=== PATIENT | female | born 1945 | race Caucasian/White ===

== ENCOUNTER 2019-07-24 05:33 | Inpatient (IN) | payer MEDICARE, BC, SELFPAY ==
[2019-07-13 13:35] VITALS: BP 155/67; PULSE 75; RESP 16; TEMP 36.5; O2SAT 94; BMI 27.6
--- NOTE | 2019-07-13 13:40 | SDCEKG_ITS ---
Test Reason : Blood Pressure : / mmHG Vent. Rate : 067 BPM Atrial Rate : 067 BPM P-R Int : 178 ms QRS Dur : 078 ms QT Int : 418 ms P-R-T Axes : 061 003 062 degrees QTc Int : 441 ms Normal sinus rhythm Inferior infarct , age undetermined Abnormal ECG Confirmed by SCOTT LOYA, RADHA ([id number]), editor trade journal FRANCIE PATRICK ([id number]) on 07/17/2019 3:18:25 PM Referred By: Nirav Vasquez Confirmed By:PANCHO CHAVEZ MD
--- NOTE | 2019-07-13 14:20 | RAD_ITS ---
STUDY: X-RAY CHEST REASON FOR EXAM: Female, 74 years old. Longtime smoker. TECHNIQUE: PA and lateral views of the chest. COMPARISON: None. FINDINGS: Hyperinflation. Scattered calcified old granulomatous disease. No acute abnormality is seen. There is no demonstrated pleural abnormality. Normal size heart. Normal mediastinum and merced. Normal visualized pulmonary arteries. Normal visualized aortic arch and descending thoracic aorta. There are degenerative changes of the visualized thoracic spine. Prior fusion in the lower cervical spine. Normal visualized ribs, clavicles, and shoulders. There is no demonstrated abnormality of the visualized soft tissue structures of the upper abdomen. RAD/Chest PA and Lateral IMPRESSION: Hyperinflation. No acute abnormality is seen. Electronically Signed: Jeramie Gaspar, at 15:08 EDT , Service support ,
[2019-07-13 14:21] LABS: Absolute Lymphocyte Count 3.07 X10^3/uL (0.83-4.51); Absolute Neutrophil Count 3.9 X10^3/uL (2.0-7.7); Basophil# 0.06 X10^3/uL; Basophil% 0.8 % (0-1); Eosinophil# 0.12 X10^3/uL; Eosinophils% 1.5 % (0-5); Hematocrit 41.9 % (37-47); Hemoglobin 13.5 g/dL (12.0-15.0); Lymphocyte # 3.07 X10^3/ul (4.0); Lymphocyte % 39.1 % (19-41); Mean Corp Hgb Conc 32.2 g/dL (32-36); Mean Corpuscular Hgb 28.9 pg (27.0-32.0); Mean Corpuscular Volume 89.7 fL (81-99); Mean Platelet Vol. 10.3 fl (6.2-12.0); Monocyte# 0.73 X10^3/uL; Monocyte% 9.3 % (0-10); NRBC Flagged by Analyzer 0 % (0-5); Neutrophil # 3.86 X10^3/uL (2.7-7.7); Platelet Count 296 K/mm3 (150-450); RBC Distribution Width CV 13.5 % (11.6-14.6); RBC Distribution Width SD 44.4 fl (35.1-43.9); Red Blood Count 4.67 M/mm3 (4.2-5.4); White Blood Count 7.9 K/mm3 (4.4-11.0)
[2019-07-13 15:21] LABS: Anion Gap 5 (5-15); BUN 24 mg/dL (7-18); BUN/Creat Ratio 30.8 RATIO (10-20); Chloride 111 mmol/L (98-107); Creatinine, Serum 0.78 mg/dL (0.55-1.02); EST Glomerular Filtration Rate 77 mL/min (>60); Est Glom Filt Rate - Afr Amer 94 mL/min (>60); Estimated Creatinine Clearance 42.07 ml/min; Glucose 103 mg/dL (74-106); Potassium 4.4 mmol/L (3.5-5.1); Sodium Level 144 mmol/L (136-145)
[2019-07-24] VITALS (15 sets, daily range): BP systolic 93–139; BP diastolic 36–83; PULSE 57–96; RESP 16–20; TEMP 36–36.8; O2SAT 95–100; BMI 27.6; BMI 27.5
[2019-07-24] MEDS: Lactated Ringers 1,000 ML 100 ML IV ×2 (06:28→10:16)
[2019-07-24] MEDS: Acetaminophen 500 MG Tablet 1000 MG PO ×3 (06:30→21:23)
[2019-07-24] MEDS: Gabapentin 600 MG Tablet PO (06:30)
[2019-07-24] MEDS: Magnesium Sulfate 4gm/100mL 4 GM/100 ML IV.SOLN. IV (06:30)
[2019-07-24 07:01] LABS: Bedside Glucose 155 mg/dL (70-110)
--- NOTE | 2019-07-24 07:15 | HIP_PTH ---
PATIENT: ALISSON MCFADDEN LOC: MS3 U#:[id number] AGE/SX: 74/F ROOM: [facility] [place] RE07/24/[address]: Dr. Nirav Vasquez DO : 1945 BED: 1 DIS: 07/25/2019 SPEC #: [id number] RECD: 07/24/19 11:29 STATUS: HEBERT REJohan #: [id number] REYNA: 07/24/19 07:[address]: Nirav Vasquez DEPT: SURGICAL PATHOLOGY RECD BY: Yobani Ernst ENTERED: 07/24/19 12:18 SP TYPE: TOTAL HIP OTHR DR: Dr. Shaw Bejarano MD Tissues: Hip, NOS Procedures: Decalcification bone/plaque Surgery Specimen Level IV HEADER OPERATION: Total hip replacement PRE-OP DIAGNOSIS: Unilateral primary osteoarthritis, right hip TISSUE SUBMITTED: Femur head MICROSCOPIC DIAGNOSIS Bone and soft tissue of right hip, total hip resection: Consistent with severe degenerative joint disease. AM:dwain 07/28/19 MICROSCOPIC DESCRIPTION Slides are reviewed. GROSS DESCRIPTION Received is one container labeled with the patient's name and designated right femur head. The specimen consists of a femoral head measuring 6.5 x 4.5 x 4.5 cm. The articular surface displays prominent osteophyte formation, eburnation and bone erosion. Also present in the specimen container are multiple irregular fragments of bone reamings and pink-yellow soft tissue measuring in aggregate 9 x 8 x 1 cm. Live Truck Technician sections are submitted in two cassettes as follows: 1 - soft tissue, 2 - bone after decalcification. / AM:dwain 07/24/19 TC:5 CPT: 09423, 88992
[2019-07-24] MEDS: Cefazolin 2 GM in 0.9% Normal Saline 100 ML IV (07:21)
--- NOTE | 2019-07-24 08:29 | PCM.OPRPT ---
Report of Operation Date of Procedure: 07/24/19 Pre-Operative Diagnosis: OA right hip Post-Operative Diagnosis: same Surgery/Procedure Performed:: Right THR Description of Surgical Findings:: Primary Surgeon/Physician: Nirav Vasquez senior medical technologist: Nicholas Wallace PA-C senior medical technologist: Pre-Operative Diagnosis: OA right hip Post-Operative Diagnosis: same Surgery/Procedure Performed: Right THR Estimated Blood Loss: 100 cc Specimen's Removed: bone Type of Anesthesia: 2 ASA Class: ASA3 Severe Disease Implants: [[place] size 50 mm Trident Tritanium cup, MDM liner, Accolade 2 size 3 femoral, +3 neck length ] Surgical Indications: Patient has severe end-stage osteoarthritic changes in the [right ] hip. They have failed conservative measures including activity modification, anti-inflammatories, use of assistive devices. This to the point where the pain affects their ability to enjoy life and complete activities of daily living without discomfort. Patient has elected to undergo the above procedure Procedure Description: The patient was greeted in the preoperative area the [right] hip was marked with surgical marker preoperative antibiotics administered. The patient was then taken to or suite in stable condition. Preoperative tranexamic acid was also utilized. Once the patient was placed in the supine position on the operating room table and once adequate anesthesia was obtained they were then placed in the lateral decubitus position with the surgical hip facing the field. All bony prominences were well-padded. A commercial hip position was utilized. The appropriate extremity was then prepped and draped in usual sterile fashion. Ioban was placed on the skin. Surgical timeout was performed and surgery was commenced. A standard posterior approach to the hip was then performed. Incision was planned and carried out with a #10 blade scalpel. Dissection was then carried length of the incision to the IT band which was split proximally and distally. A Charnley retractor was then placed for soft tissue retraction exposing the piriformis. A standard posterior capsulotomy was performed. Severe eburnation of bone was noted and periarticular osteophytes were identified consistent with severe end-stage osteoarthritis. A femoral neck osteotomy guide was used to justina the proximal femur. A femoral osteotomy was then created approximately 1 fingerbreadth above the lesser trochanter. This was measured and placed on the back table. Once this was complete acetabular retractors were placed anteriorly and posteriorly. Labrum was then removed from the acetabulum exposing the entire cup of the acetabulum. Sequential reaming was then commenced and the acetabulum was medialized and sequentially widened in order to accommodate appropriate size cup. The acetabular cup was then impacted into position to the appropriate depth referencing approximately 30? anteversion and 45? of inclination. Excellent purchase was obtained. [2] appropriate sized cancellous screws were placed in the cup. An appropriate size MDM liner was then placed. Attention was then turned to the femoral preparation. The hip was placed in the 90/90 position and a lateralizing box osteotome was utilized. Femoral starting awl was used followed by sequential broaching to the appropriate size. Excellent purchase was obtained with the stem no stem subsidence and excellent rotational stability was confirmed. A calcar reamer was then used in the trial head neck was placed on the broach. The hip was then located and taken through full range of motion flexion internal and external rotation as well as extension. Excellent stability was noted no impingement was identified of the components and leg lengths appear to be appropriate. The hip was at this point dislocated and the trial femoral components were removed. The final femoral stem was then implanted and impacted to the appropriate depth. Again excellent purchase was obtained no stem subsidence or rotational instability was noted. The hip was once again trialed and confirmation of leg length and stability was performed. Soft tissue tension also appeared to be appropriate. At this point the hip was redislocated and the trunnion was cleaned and dried meticulously in the appropriate size MDM femoral head was placed on the clean dry trunnion using a 12/14 Wilson taper. The hip was once again relocated and again taken through full range of motion. I did inject a cocktail of postoperative pain medication in the deep and superficial tissues. Copious irrigation was performed. Anatomic closure of the piriformis tendon was performed through drill holes in the greater trochanter. A #1 Vicryl 0 Vicryl was utilized in subcutaneous tissue and surgical shyla were placed in the skin. A well-padded nonadherent dressing was applied. Patient was taken to PACU in stable condition. No complications were identified. Will follow standard postop protocol for total hip arthroplasty. My asset protection assistant played a vital role in the procedure beginning with positioning, holding retraction of soft tissues, positioning the leg to optimize visualization during the procedure and assisting with wound closure. senior medical technologist: Yaron Wallace Type of Anesthesia:: Spinal Anesthesiologist: Weeman,Farhat Specimen's removed: bone - Admit VTE Documentation VTE Present on Admission: No VTE Mechan Device Prophylaxis: SCD's, Knee High JENNA Hose VTE Pharm Prophylaxis ordered?: Yes
--- NOTE | 2019-07-24 09:15 | RAD_ITS ---
STUDY: X-RAY - PELVIS AND RIGHT HIP REASON FOR EXAM: Female, 74 years old. Right hip replacement. TECHNIQUE: 2 views of the pelvis and hip. COMPARISON: None. FINDINGS: The patient is status post right total hip replacement. Discoid alignment. Postoperative soft tissue changes. Marked degree of osteoarthritis with spurring involving the left hip joint. RAD/Hip Min 2 Views (Portable) IMPRESSION: Status post right total hip replacement. There is good alignment. Postoperative soft tissue changes. Marked degree of osteoarthritis of the left hip joint. Electronically Signed: Jeramie Gaspar, at 11:01 EDT , Service support ,
[2019-07-24] MEDS: Lactated Ringers 1,000 ML 999 ML IV (09:22)
[2019-07-24] MEDS: Lactated Ringers 1,000 ML 125 ML IV (11:00)
[2019-07-24] MEDS: Multivitamins,Therapeutic Tablet 1 TABLET PO (14:07)
[2019-07-24] MEDS: Cefazolin 1 GM/50 ML BAG IV ×2 (15:16→23:35)
[2019-07-24] MEDS: Aspirin 325 MG Tablet PO (15:17)
--- NOTE | 2019-07-24 15:41 | CHAPLAIN ---
three attempts made to visit this patient but each time someone in therapy was working with her
[2019-07-24] MEDS: oxyCODONE 5 MG Tablet PO (17:26)
[2019-07-24] MEDS: Lisinopril 10 MG Tablet PO (21:23)
[2019-07-25 02:18] VITALS: BP 148/71; PULSE 75; RESP 20; TEMP 36.8; O2SAT 96
[2019-07-25] MEDS: oxyCODONE 5 MG Tablet PO ×3 (02:28→12:38)
[2019-07-25] MEDS: Acetaminophen 500 MG Tablet 1000 MG PO ×2 (05:41→12:39)
[2019-07-25 05:45] LABS: Hematocrit 33.1 % (37-47); Hemoglobin 10.7 g/dL (12.0-15.0); Mean Corp Hgb Conc 32.3 g/dL (32-36); Mean Corpuscular Hgb 28.8 pg (27.0-32.0); Mean Corpuscular Volume 89.2 fL (81-99); Mean Platelet Vol. 9.7 fl (6.2-12.0); Platelet Count 233 K/mm3 (150-450); RBC Distribution Width CV 13.8 % (11.6-14.6); RBC Distribution Width SD 45.2 fl (35.1-43.9); Red Blood Count 3.71 M/mm3 (4.2-5.4); White Blood Count 15.8 K/mm3 (4.4-11.0)
[2019-07-25 06:03] LABS: Anion Gap 6 (5-15); BUN 16 mg/dL (7-18); BUN/Creat Ratio 22.7 RATIO (10-20); Calcium,Total 8.7 mg/dL (8.5-10.1); Chloride 111 mmol/L (98-107); EST Glomerular Filtration Rate 87 mL/min (>60); Est Glom Filt Rate - Afr Amer 105 mL/min (>60); Estimated Creatinine Clearance 42.07 ml/min; Glucose 121 mg/dL (74-106); Potassium 4.4 mmol/L (3.5-5.1); Sodium Level 145 mmol/L (136-145)
--- NOTE | 2019-07-25 07:45 | PCM.PN.ORT ---
Subjective: Patient sitting up in bed, states pain is well-managed this morning. Patient denies chest pain, shortness of breath, calf pain, nausea vomiting. Patient states she is ready for discharge home today. Has no other complaints at this time Objective: Patient's dressing is clean dry intact. Negative signs and symptoms of DVT. Vital signs and labs were all reviewed as noted in this document. Patient is afebrile. Patient has no respiratory distress, speaking full sentences. Patient has good motion of the bilateral knees ankles and feet. Patient has reluctance of motion of the right hip secondary to pain. Patient leg lengths are equal. - Physical Exam General: Alert, Oriented x3, Cooperative HEENT: PERRLA Oral: Moist Mucosa Neurological: Cranial nerves II-XII grossly intact Psych/Mental Status: Normal Affect, Alert and oriented to time, place, person, mood and affect Vital Signs Temp Pulse Resp BP Pulse Ox 98.2 F 75 20 H 148/71 H 96 07/25/19 02:18 07/25/19 02:18 07/25/19 02:18 07/25/19 02:18 07/25/19 02:18 Oxygen Flow Rate (L/min) 6 Oxygen Delivery Method Room Air Weight: 70.5 kg Body Mass Index (BMI) 27.5 Intake and Output for Last 24 Hours 07/23/19 07/24/19 07/25/19 23:59 23:59 23:59 Intake Total 2892.5 / 2892.5 Balance 2892.5 / 2892.5 Laboratory Tests Past 24 Hrs 07/25/19 07/25/19 05:25 05:25 WBC 15.8 H RBC 3.71 L Hgb 10.7 L Hct 33.1 L MCV 89.2 MCH 28.8 MCHC 32.3 RDW Std Deviation 45.2 H RDW Coeff of Juliana 13.8 Plt Count 233 MPV 9.7 Sodium 145 Potassium 4.4 Chloride 111 H Carbon Dioxide 28.0 Anion Gap 6 BUN 16 Creatinine 0.70 Estim Creat Clear Calc 42.07 Est GFR (MDRD) Af Amer 105 Est GFR (MDRD) Non-Af 87 BUN/Creatinine Ratio 22.7 H Glucose 121 H Calcium 8.7 Medical Necessity - Tobacco Use Smoking Status: Light Smoker (<10/day) Tobacco Use: Non-smoker, Cigarettes Assessment/Plan Status post right total hip arthroplasty Plan 1. DC oxycodone, will start patient on tramadol 1-2 q. 6 as needed for pain. Will continue Tylenol Extra Strength 2 every 8 hours 2. Continue physical therapy today weight-bear as tolerated with walker. 3. Aspirin 325 mg 1 p.o. every 12 hours x30 days for postop DVT prophylaxis 4. Encourage incentive spirometry 5. Discharge home today will continue outpatient therapy 6. Follow-up as scheduled, see pink sheet
--- NOTE | 2019-07-25 07:54 | PCM.DC.THR ---
Discharge Diet: No Restrictions Discharge Activity: May Not Drive, May Shower, Use Walker May shower in (days): 3 - only if incision is dry and without drainage. Do NOT soak/submerge in tub/pool/martinez/stream/hot tub. May resume sexual activity in: No Restrictions Ice area for (Minutes): 20 - every hour while awake Weight Bearing Status: Weight bearing as tolerated Lifting Restrictions: 20 pounds Elevate: Operative Extremity Call your doctor if your incision/area has: Continuous Slow Oozing, Sudden Increased Bleeding, Increased Pain/ Swelling, Increased Redness, Foul Smelling Discharge Call your doctor if you observe: Fever of 101 or Higher, Inability to urinate, Inability to have a bowel movement, Shortness of breath, Fainting spells, Chest pain, Increased palpitations (irregular heartbeat), Calf discomfort, Uncontrolled pain Change Dressing in (Days):: 0 - Change daily and as needed. Cleanse incision/area with: Soap & Water Allergies/Adverse Reactions: Allergies No Known Allergies Allergy (Verified 07/24/19 06:07) Medications to take at Discharge Lisinopril [Prinivil] 10 mg PO QHS 07/13/19 Meloxicam [Mobic] 15 mg PO QHS 07/13/19 Multivitamin [Multiple Vitamins] 1 ea PO DAILY 07/13/19 [place]-3 Fatty Acids/Fish Oil [Fish Oil 1,000 mg Capsule] 1 ea PO DAILY 07/13/19 Acetaminophen [Tylenol] 1,000 mg PO Q8 #90 tab 07/25/19 Aspirin 325 mg PO BIDCM #60 tab 07/25/19 Oxycodone [Oxyir] 5 - 10 mg PO Q6H PRN PRN 7 Days #56 tab 07/25/19 The following prescriptions were given: Aspirin 325 mg PO BIDCM #60 tab Prescription Printed Oxycodone [Oxyir] 5 - 10 mg PO Q6H PRN PRN 7 Days #56 tab PRN Reason: Mod-Severe Pain (4-08/10) Prescription Printed Acetaminophen [Tylenol] 1,000 mg PO Q8 #90 tab Prescription Printed Primary Care Physician: Shaw Bejarano MD [Primary Care Provider] - Test Results: Test results from this visit will be discussed in further detail at your follow-up appointment, if applicable. Please Follow Up With: Yaron Wallace PA-C When: as scheduled, see pink sheet
[2019-07-25] MEDS: Aspirin 325 MG Tablet PO (07:59)
[2019-07-25] MEDS: Multivitamins,Therapeutic Tablet 1 TABLET PO (08:00)
[2019-07-25] MEDS: Senna/Docusate Sodium 1 Tablet 2 TABLET PO (08:00)
[2019-07-25 08:20] VITALS: BP 144/62; PULSE 99; RESP 16; TEMP 36.6; O2SAT 97
--- NOTE | 2019-07-25 10:25 | CASEMGMT ---
RN TALITA Face to Face with patient for initial transition planning/care coordination assessment. RN CM introduced self and role at [facility]. Patient sitting in chair, alert and oriented. Patient willing to participate in assessment and is able to answer all questions appropriately. Care providers, pharmacy, and demographics verified. Patient wishes to discharge home and is setup with [facility] for Outpatient therapy. Patient states she has no further needs or concerns at this time. CM to follow for discharge planning needs that may arise. PCP: Carlee Specialists:[facility] Pharmacy: [facility] Insurance: Shahbaz ALDRIDGE Prescription Benefit: yes Living Will/HPOA: yes, Nicholas Rosales LNOK: , daughter Living Arrangements: Patient lives with in 1 story home with no steps to enter the home. Patient is independent at home prior to surgery. Transportation: DME/HHC: Patient states she has walker, raised toilet, cane, shower chair, wheelchair. Patient to have outpatient therapy at [facility] on Wednesday. Disposition Plan: Patient to discharge home with outpatient therapy, family support, and follow-up plans in place. Lita GREY, RN, CM
[2019-07-25 14:20] VITALS: BP 138/71; PULSE 94; RESP 16; TEMP 36.6; O2SAT 97
== END 2019-07-25 14:25 | disposition home or self-care (01) | DRG 470 ==
LOC: ACINP 05:36 → MS3 07:37
PROVIDERS: Admitting Provider Orthopaedic Surgery; Referring Provider Orthopaedic Surgery; Visit Provider Orthopaedic Surgery
PROC: 0SR90JZ Replacement of Right Hip Joint with Synthetic Substitute, Open Approach (ICD-10-PCS; CPT 27130; principal; 2019-07-24 06:50)
DX: M16.11 Unilateral primary osteoarthritis, right hip (principal)
CPT/HCPCS: 36415; 71046; 73502; 80048; 82962; 85025; 85027; 87081; 88305; 88311; 93005; 97110; 97116; 97162; 97166; 97530; 97535; C1776; J7120; J2405

== ENCOUNTER → 2022-04-29 | Outpatient (CLI) | payer MEDICARE, BC, SELFPAY ==
--- NOTE | 2022-04-29 08:30 | HIP_PTH ---
PATIENT: ALISSON MCFADDEN LOC: ONEAL U#:[id number] AGE/SX: 77/F ROOM: RE04/29/[address]: Dr. Nirav Vasquez DO : 1945 BED: DIS: 04/29/2022 SPEC #: [id number] RECD: 04/29/22 15:00 STATUS: HEBERT REJohan #: [id number] REYNA: 04/29/22 08:[address]: Nirav Vasquez DEPT: SURGICAL PATHOLOGY RECD BY: Yee Chaudhary ENTERED: 04/30/22 07:18 SP TYPE: TOTAL HIP OTHR DR: Dr. Shaw Bejarano MD [facility] Tissues: Hip, NOS Procedures: Decalcification bone/plaque Surgery Specimen Level IV HEADER OPERATION: Left total hip arthroplasty PRE-OP DIAGNOSIS: Unilateral primary osteoarthritis left hip TISSUE SUBMITTED: Left femur head MICROSCOPIC DIAGNOSIS Bone and tissue of left hip, total hip resection: Severe degenerative joint disease. AM:dwain 05/05/2022 MICROSCOPIC DESCRIPTION Slides are reviewed. GROSS DESCRIPTION Received is one container labeled with the patient's name and designated left femoral head. The specimen consists of a ojeda femoral head measuring 5 x 4.8 x 4.5 cm. The articular surface displays prominent osteophyte formation, eburnation and bone erosion. Also present in the specimen container are multiple irregular fragments of indurated soft tissue and bone fragments measuring in aggregate 7 x 5.5 x 2 cm. Bindery Machine Setter/Set Up Operator sections are submitted in two cassettes as follows: 1 - soft tissue, 2 - bone after decalcification. / AM:dwain 04/30/2022 TC:5 CPT: 47871, 04713
== END | disposition home or self-care (01) ==
LOC: LABSPEC 15:28
PROVIDERS: Referring Provider Orthopaedic Surgery; Visit Provider Orthopaedic Surgery
DX: M16.12 Unilateral primary osteoarthritis, left hip (principal)
CPT/HCPCS: 88305; 88311

== ENCOUNTER → 2025-10-10 | Outpatient (CLI) | payer MEDICARE, BC, SELFPAY ==
--- NOTE | 2025-10-10 15:55 | CT_ITS ---
PROCEDURE: EXTREMITY UPPER WITHOUT CONTRA 10/10/2025 REASON FOR EXAM: OA Pain. TECHNIQUE: Procedure Code: CTEUWO Modality: CT Procedure: EXTREMITY UPPER WITHOUT CONTRA Coronal and Sagittal reconstruction series were provided. One or more dose reduction techniques were used (e.g., Automated exposure control, adjustment of the mA and/or kV according to patient size, use of iterative reconstruction technique. RADIATION DOSE SUMMARY: CTDlvol: 24.19 mGy DLP: 528.8 mGycm COMPARISON: None. FINDINGS: Bones: Degenerative changes of the visualized thoracic spine. Joints: Glenohumeral joint space narrowing with subchondral sclerosis, bulky marginal osteophytes. Degenerative changes of the right AC joint. C5-6 ACDF. Soft Tissues: No joint effusion. The soft tissues are otherwise unremarkable. Calcified superior mediastinal lymph node. CT/Extremity Upper without Contra IMPRESSION: 1. Osteoarthritic degenerative changes of the right glenohumeral joint with bu lky marginal humeral osteophytes that can predispose the patient to impingement type symptoms. No fracture or subluxatio n. 2. Proliferative degenerative changes of the thoracic and visualized cervical spine with noted C5-6 ACDF. Reading Location: [id number]
--- OUTSIDE RECORDS SUMMARY | 2025-10-10 16:15 | XMS RPT_ITS | CCD ---
Author Organization [facility] Inform ion [facility] Care Team Providers Care Sash Assembler Name Role Phone Jhon Nicholas Mathew Unavailable [phone] Shaw French Unavailable Sj Patrick Unavailable Unavailable Shaw French Unavailable Unavailable Unavailable Manolo, Dr. Shaw Hernandez Primary Care Unavaila pooja Bey, Dr. Julio Referring Unavailable Jose Luis, Dr. Julio Attending Unavailable Hellinger, Jamee Lim Primary Care Unavail able Janas, Mr. Marrufo Attending Unavailable Hellinger, Jamee Lim Primary Care Unavail able Janaziza, MrJamee Marrufo Attending Unavailable Hellinger, Jamee Lim Primary Care Unavail able Janaziza, MrJamee Marrufo Attending Unavailable Hellinger, Jamee Lim Primary Care Unavail able Janas, MrJamee Marrufo Attending Unavailable Janas, MrJamee Marrufo Attending Unavailable Hellinger, Jamee Lim Primary Care Unavail able Jos eLuis, Dr. Julio Attending Unavailable Manolo, Dr. Shaw Hernandez Primary Care Unavaila pooja Patrick, Dr. Sj Clarke Attending Unava ilantonio French, Dr. Shaw Hernandez Primary Care Unavaila Papito Daniel PA-C Primary Care Provider PAPITO STEPHENS Attending Unavailable PAPITO STEPHENS Primary Care Unavailable PAPITO STEPHENS Primary Care Unavailable Medications Current Medications Medication Drug Class(es) Dates Sig (Normalized) Sig (Original) acetaminophen 500 mg oral tablet (1 source) Start: 07-25-2019 take 1000 mg by mouth every eight hours Acetaminophen Active 1000 MG PO EVERY 8 HOURS July 25, 2019 12:00am amLODIPine 10 mg oral tablet (1 source) Dihydropyridine Calcium Channel Jo-Ann Start: 07-21-2023 take 1 tablet by mouth once daily amLODIPine (Norvasc) 10 mg tablet Take 1 tablet (10 mg) by mouth once daily. 0 07/21/2023 Active ascorbic acid 200 mg / beta carotene 1000 unt / cuprous oxide 2 mg / dl-alpha tocopheryl acetate 60 unt / lutein 2 mg / sodium selenate 0.055 mg / zinc oxide 40 mg oral tablet (1 source) Vitamin C take 1 tablet by mouth once daily Ocuvite oral tablet ; 1 tab(s) orally once a day Quantity: 0 Refills: 0 Ordered: 30-Apr-2023 Johanny Lott Generic Substitution Allowed aspirin 325 mg oral tablet (2 sources) Platelet Aggregation Inhibitor, Nonsteroidal Anti-inflammatory Drug Start: 07-25-2019 take 325 mg by mouth twice daily at mealtime Aspirin Active 325 MG PO TWICE DAILY WITH MEALS 60 July 25, 2019 12:00am take 1 tablet by mouth once jerardo y aspirin 81 mg EC tablet Take 1 tablet (81 mg) by mouth once daily. 0 Active lisinopril 40 mg oral tablet (5 sources) Angiotensin Converting Enzyme Inhibitor Start: 08-31-2023 take 1 tablet by mouth once daily lisinopril 40 mg tablet Take 1 tablet (40 mg) by mouth once daily. 0 08/31/2023 Active Start: 07-13-2019 take 10 mg by mouth at bedtime Lisinopril Active 10 MG PO AT BEDTIME July 13, 2019 12:00am take 1 tablet by monico th once daily Lisinopril 40 MG Oral Tablet TAKE 1 TABLET DAILY. Quantity: 90 Refills: 3 Ordered: 13-May-2023 DO Active meloxicam 15 mg oral tablet (5 sources) Nonsteroidal Anti-inflammatory Drug Start: 08-31-2023 take 1 tablet by mouth once daily meloxicam (Mobic) 15 mg tablet Take 1 tablet (15 mg) by mouth once daily. 0 08/31/2023 Active Start: 07-13-2019 take 15 mg by mouth at bedtime Meloxicam Active 15 MG PO AT BEDTIME July 13, 2019 12:00am take 1 tablet by mouth once jerardo y Meloxicam 10 MG Oral Capsule TAKE 1 TAB DAILY Quantity: 0 Refills: 0 Ordered: 13-May-2023 DO Active 24 hr metoprolol succinate 50 mg extended release oral tablet (1 source) beta-Adrenergic Jo-Ann Start: 08-31-2023 take 1 tablet by mouth once daily metoprolol succinate XL (Toprol-XL) 50 mg 24 hr tablet Take 1 tablet (50 mg) by mouth once daily. 0 08/31/2023 Active Multivitamin preparation (2 sources) Start: 07-13-2019 Multivitamin Active 1 EACH PO DAILY July 13, 2019 12:00am take 1 tablet by mouth once jerardo y Multiple Vitamins oral tablet ; 1 tab(s) orally once a day Quantity: 0 Refills: 0 Ordered: 30-Apr-2023 Johanny Lott Generic Substitution Allowed [place]-3 Fatty Acids (1 source) [place]-3 Fatty Acid take 1 capsule by mouth once daily Fish Oil oral capsule ; 1 cap(s) orally once a day Quantity: 0 Refills: 0 Ordered: 30-Apr-2023 Johanny Lott Generic Substitution Allowed [place]-3 Fatty Acids-Fish Oil (1 source) Start: 07-13-2019 [place]-3 Fatty Acids-Fish Oil Active 1 EACH PO DAILY July 13, 2019 12:00am Completed/Discontinued Medications Medication Drug Class(es) Dates Sig (Normalized) Sig (Original) oxyCODONE hydrochloride 5 mg oral tablet (1 source) Opioid Agonist Start: 07-25-2019 End: 08-09-2019 take 5-10 mg by mouth every six hours as needed Oxycodone Discontinued 5 - 10 MG PO EVERY 6 HOURS NEEDED 56 7 July 25, 2019 August 09, 2019 12:07am Problems Active Problems Problem Classification Problem Date Documented Date Episodic/Chronic Administrative/social admission (1 source) Disappearance and of family member; Translations: [Disappearance and of family member] Onset: 04-30-2023 Episodic Anxiety disorders (2 sources) Anxiety disorder, unspecified; Translations: [Anxiety disorder, unspecified] Onset: 04-30-2023 Chronic Essential hypertension (8 sources) Benign hypertension; Translations: [Benign essential hypertension] Onset: 04-30-2023 09-08-2023 Chronic Nonspecific chest pain (13 sources) Chest pain; Translations: [Chest pain, unspecified] Onset: 04-30-2023 04-30-2023 Episodic Comment on above: CHEST PAIN Osteoarthritis (15 sources) Osteoarthritis of left hip joint; Translations: [Osteoarthrosis, localized, primary, pelvic region and thigh] Onset: 06-01-2022 09-08-2023 Chronic Other aftercare (1 source) Other snf (current) drug therapy; Translations: [Other longwall foreman (current) drug therapy] Onset: 04-30-2023 Episodic Other nervous system disorders (1 source) Anesthesia of skin; Translations: [Anesthesia of skin] Onset: 04-30-2023 Episodic Other non-traumatic joint disorders (20 sources) Hip pain; Translations: [Pain in joint, pelvic region and thigh] Episodic Other screening for suspected conditions (not mental disorders or infectious disease) (5 sources) Patient encounter status; Translations: [Encounter for screening for lipoid disorders] Onset: 09-08-2023 09-08-2023 Episodic Residual codes; unclassified (1 source) Tobacco use; Translations: [Tobacco use] Onset: 04-30-2023 Episodic Unclassified (1 source) Chest pain in adult 04-30-2023 Past or Other Problems Problem Classification Problem Date Documented Da te Episodic/Chronic Other non-traumatic joint disorders (1 source) Pain in left hip; Translations: [Pain in left hip] Onset: 06-01-2022 Episodic Unclassified (1 source) Onset: 09-08-2023 09-08-2023 Results Test Name Value Interpretation Reference Range Facility CBC W Auto Differential pane l (Bld)on 08-15-2024 Basophils (Bld) [#/Vol] 0.08 x10*3/uL Normal 0.00-0.10 [facility] Comment on above: Performed By: ###David 5 7021-8 #### ELSY TABOR ([id number]) [facility] ([facility]) [address] [place] [address] 45225 Basophils/100 WBC (Bld) 0.8 % Normal 0.0-2.0 [facility] Comment on above: Performed By: ###David 5 7021-8 #### ELSY TABOR ([id number]) [facility] ([facility]) [address] [place] [address] 71075 Eosinophils (Bld) [#/Vol] 0.10 x10*3/uL Normal 0.00-0.40 [facility] Comment on above: Performed By: #### 5 7021-8 #### ELSY TABOR ([id number]) [facility] ([facility]) [address] [place] [address] 66817 Eosinophils/100 WBC (Bld) 1.0 % Normal 0.0-6.0 [facility] Comment on above: Performed By: #### 5 7021-8 #### ELSY TABOR ([id number]) [facility] ([facility]) [address] [place] [address] 92527 Erythrocyte distribution width (RBC) [Ratio] 13.1 % Normal 11.5-14.5 [facility] Comment on above: Performed By: #### 5 7021-8 #### ELSY TABOR (41027) [facility] ([facility]) [address] [place] [address] 29451 Hematocrit (Bld) [Volume fraction] 43.5 % Normal 36.0-46.0 [facility] Comment on above: Performed By: #### 5 7021-8 #### ELSY TABOR (77430) [facility] ([facility]) [address] [place] [address] 84906 Hemoglobin (Bld) [Mass/Vol] 13.8 g/dL Normal 12.0-16.0 [facility] Comment on above: Performed By: #### 5 7021-8 #### ELSY TABOR ([id number]) [facility] ([facility]) [address] [place] [address] 59072 Immature granulocytes (Bld) [#/Vol] 0.02 x10*3/uL Normal 0.00-0.50 [facility] Comment on above: Performed By: #### 5 7021-8 #### ELSY TABOR ([id number]) [facility] ([facility]) [address] [place] [address] 94808 Immature granulocytes/100 WBC (Bld) 0.2 % Normal 0.0-0.9 [facility] Comment on above: Result Comment: Mariza ture Granulocyte Count (IG) includes promyelocytes, myelocytes and metamyelocytes but does not include bands. Percent differential counts (%) should be interpreted in the context of the absolute cell counts (cells/UL). Performed By: #### 5 7021-8 #### ELSY TABOR (93900) [facility] ([facility]) [address] [place] [address] 80339 Lymphocytes (Bld) [#/Vol] 3.13 x10*3/uL High 0.80-3.00 [facility] Comment on above: Performed By: #### 5 7021-8 #### ELSY TABOR ([id number]) [facility] ([facility]) [address] [place] [address] 83965 Lymphocytes/100 WBC (Bld) 32.6 % Normal 13.0-44.0 [facility] Comment on above: Performed By: #### 5 7021-8 #### ELSY TABOR (70805) [facility] ([facility]) [address] [place] [address] 27448 MCH (RBC) [Entitic mass] 28.8 pg Normal 26.0-34.0 [facility] Comment on above: Performed By: #### 5 7021-8 #### ELSY TABOR (51037) [facility] ([facility]) [address] [place] [address] 70786 MCHC (RBC) [Mass/Vol] 31.7 g/dL Low 32.0-36.0 [facility] Comment on above: Performed By: #### 5 7021-8 #### ELSY TABOR (04658) [facility] ([facility]) [address] [place] [address] 66772 MCV (RBC) [Entitic vol] 91 fL Normal 80-100 [facility] Comment on above: Performed By: #### 5 7021-8 #### ELSY TABOR (19711) [facility] ([facility]) [address] [place] [address] 36611 Monocytes (Bld) [#/Vol] 0.84 x10*3/uL High 0.05-0.80 [facility] Comment on above: Performed By: #### 5 7021-8 #### ELSY TABOR (76453) [facility] ([facility]) [address] [place] [address] 40173 Monocytes/100 WBC (Bld) 8.8 % Normal 2.0-10.0 [facility] Comment on above: Performed By: #### 5 7021-8 #### ELSY TABOR (49963) [facility] ([facility]) [address] [place] [address] 53840 Neutrophils (Bld) [#/Vol] 5.42 x10*3/uL Normal 1.60-5.50 [facility] Comment on above: Result Comment: Perc ent differential counts (%) should be interpreted in the context of the absolute cell counts (cells/uL). Performed By: #### 5 7021-8 #### ELSY TABOR (06038) [facility] ([facility]) [address] [place] [address] 90431 Neutrophils/100 WBC (Bld) 56.6 % Normal 40.0-80.0 [facility] Comment on above: Performed By: #### 5 7021-8 #### ELSY TABOR ([id number]) [facility] ([facility]) [address] [place] [address] 15637 Nucleated RBC/100 WBC (Bld) [Ratio] 0.0 /100 WBCs Normal 0.0-0.0 [facility] Comment on above: Performed By: #### 5 7021-8 #### ELSY TABOR (73235) [facility] ([facility]) [address] [place] [address] 26425 Platelets (Bld) [#/Vol] 339 x10*3/uL Normal 150-450 [facility] Comment on above: Performed By: #### 5 7021-8 #### ELSY TABOR (76401) [facility] ([facility]) [address] [place] [address] 55750 RBC (Bld) [#/Vol] 4.79 x10*6/uL Normal 4.00-5.20 [facility] Comment on above: Performed By: #### 5 7021-8 #### ELSY TABOR (94733) [facility] ([facility]) [address] [place] [address] WBC (Bld) [#/Vol] 9.6 x10*3/uL Normal 4.4-11.3 [facility] Comment on above: Performed By: #### 5 7021-8 #### ELSY TABOR (43497) [facility] ([facility]) [address] [place] [address] Comprehensive metabolic 2000 panelon 08-15-2024 Albumin BCP dye [Mass/Vol] 4.6 g/dL Normal 3.4-5.0 [facility] Comment on above: Performed By: #### 2 4323-8 #### ELSY TABOR (49119) [facility] ([facility]) [address] [place] [address] ALP [Catalytic activity/Vol] 78 U/L Normal 33-136 [facility] Comment on above: Performed By: #### 2 4323-8 #### ELSY TABOR (38667) [facility] ([facility]) [address] [place] [address] ALT With P-5'-P [Catalytic activity/Vol] 27 U/L Normal 7-45 [facility] Comment on above: Result Comment: Joy ents treated with Sulfasalazine may generate falsely decreased results for ALT. Performed By: #### 2 4323-8 #### ELSY TABOR (58327) [facility] ([facility]) [address] [place] [address] 14665 Anion gap [Moles/Vol] 14 mmol/L Normal 10-20 [facility] Comment on above: Performed By: #### 2 4323-8 #### ELSY TABOR (19581) [facility] ([facility]) [address] [place] [address] 31134 AST With P-5'-P [Catalytic activity/Vol] 18 U/L Normal 9-39 [facility] Comment on above: Performed By: #### 2 4323-8 #### ELSY TABOR (39457) [facility] ([facility]) [address] [place] [address] 59319 Bilirubin [Mass/Vol] 0.3 mg/dL Normal 0.0-1.2 [facility] Comment on above: Performed By: #### 2 4323-8 #### ELSY TABOR (73195) [facility] ([facility]) [address] [place] [address] 22899 Calcium [Mass/Vol] 9.6 mg/dL Normal 8.6-10.3 [facility] Comment on above: Performed By: #### 2 4323-8 #### ELSY TABOR (90293) [facility] ([facility]) [address] [place] [address] 01785 Chloride [Moles/Vol] 105 mmol/L Normal 98-107 [facility] Comment on above: Performed By: #### 2 4323-8 #### ELSY TABOR (06067) [facility] ([facility]) [address] [place] [address] 58296 CO2 [Moles/Vol] 25 mmol/L Normal 21-32 [facility] Comment on above: Performed By: #### 2 4323-8 #### ELSY TABOR (02430) [facility] ([facility]) [address] [place] [address] 90531 Creatinine [Mass/Vol] 0.79 mg/dL Normal 0.50-1.05 [facility] Comment on above: Performed By: #### 2 4323-8 #### ELSY TABOR (09873) [facility] ([facility]) [address] [place] [address] 56886 Glomerular filtration rate/1.73 sq M.predicted 77 mL/min/1.73m*2 Normal >60 [facility] Comment on above: Result Comment: Calc ulations of estimated GFR are performed using the 2020 CKD-EPI Study Refit equation without the race variable for the IDMS-Traceable creatinine methods. https://jasn.asnjournals.org/content/early/ASN.68695974 88 Performed By: #### 2 4323-8 #### ELSY TABOR (46011) [facility] ([facility]) [address] [place] [address] 85277 Glucose [Mass/Vol] 116 mg/dL High 74-99 [facility] Comment on above: Performed By: #### 2 4323-8 #### ELSY TABOR (16548) [facility] ([facility]) [address] [place] [address] Potassium [Moles/Vol] 3.9 mmol/L Normal 3.5-5.3 [facility] Comment on above: Performed By: #### 2 4323-8 #### ELSY TABOR (57469) [facility] ([facility]) [address] [place] [address] Protein [Mass/Vol] 6.6 g/dL Normal 6.4-8.2 [facility] Comment on above: Performed By: #### 2 4323-8 #### ELSY TABOR (80783) [facility] ([facility]) [address] [place] [address] 67603 Sodium [Moles/Vol] 140 mmol/L Normal 136-145 [facility] Comment on above: Performed By: #### 2 4323-8 #### ELSY TABOR (84461) [facility] ([facility]) [address] [place] [address] 00784 Urea nitrogen [Mass/Vol] 23 mg/dL Normal 6-23 [facility] Comment on above: Performed By: #### 2 4323-8 #### ELSY TABOR (13816) [facility] ([facility]) [address] [place] [address] 21490 Lipid 1996 panelon 4 Cholesterol [Mass/Vol] 196 mg/dL Normal 0-199 [facility] Comment on above: Result Comment: Age Desirable Borderline High High 0-19 Y 0 - 169 170 - 199 >/= 200 20-24 Y 0 - 189 190 - 224 >/= 225 >24 Y 0 - 199 200 - 239 >/= 240 All ranges are based on fasting samples. Specific therapeutic targets will vary based on patient-specific cardiac risk. Pediatric guidelines reference:Pediatrics 2011, 128(S5).Adult guidelines reference: NCEP ATPIII Guidelines,CALLIE 2001, 258:2486-97 Venipuncture immediately after or during the administration of Metamizole may lead to falsely low results. Testing should be performed immediately prior to Metamizole dosing. Performed By: #### 2 4331-1 #### ELSY TABOR (76215) [facility] ([facility]) [address] [place] [address] 36204 Cholesterol in HDL [Mass/Vol] 59.0 mg/dL Normal [facility] Comment on above: Result Comment: Age Very Low Low Normal High 0-19 Y < 35 < 40 40-45 ---- 20-24 Y ---- < 40 >45 ---- >24 Y ---- < 40 40-60 >60 Performed By: #### 2 4331-1 #### ELSY TABOR (76952) [facility] ([facility]) [address] [place] [address] 76510 Cholesterol in LDL [Mass/Vol] 59 mg/dL Normal <=99 [facility] Comment on above: Result Comment: Near Borderline AGE Desirable Optimal High High Very High 0-19 Y 0 - 109 --- 110-129 >/= 130 ---- 20-24 Y 0 - 119 --- 120-159 >/= 160 ---- >24 Y 0 - 99 100-129 130-159 160-189 >/=190 Performed By: #### 2 4331-1 #### ELSY TABOR (16828) [facility] ([facility]) [address] [place] [address] 07765 Cholesterol in VLDL [Mass/Vol] 78 mg/dL High 0-40 [facility] Comment on above: Performed By: #### 2 4331-1 #### ELSY TABOR ([id number]) [facility] ([facility]) [address] [place] [address] 29711 CHOLESTEROL/HDL RATIO 3.3 Normal [facility] Comment on above: Result Comment: Ref Values Desirable < 3.4 High Risk > 5.0 Performed By: #### 2 4331-1 #### ELSY TABOR (13782) [facility] ([facility]) [address] [place] [address] 63741 NON HDL CHOLESTEROL 137 mg/dL Normal 0-149 [facility] Comment on above: Result Comment: Age Desirable Borderline High High Very High 0-19 Y 0 - 119 120 - 144 >/= 145 >/= 160 20-24 Y 0 - 149 150 - 189 >/= 190 ---- >24 Y 30 mg/dL above LDL Cholesterol goal Performed By: #### 2 4331-1 #### ELSY TABOR (22863) [facility] ([facility]) [address] [place] [address] 86139 Triglyceride [Mass/Vol] 392 mg/dL High 0-149 [facility] Comment on above: Result Comment: Age Desirable Borderline High High Very High 0 D-90 D 19 - 174 ---- ---- ---- 91 D- 9 Y 0 - 74 75 - 99 >/= 100 ---- 10-19 Y 0 - 89 90 - 129 >/= 130 ---- 20-24 Y 0 - 114 115 - 149 >/= 150 ---- >24 Y 0 - 149 150 - 199 200- 499 >/= 500 Venipuncture immediately after or during the administration of Metamizole may lead to falsely low results. Testing should be performed immediately prior to Metamizole dosing. Performed By: #### 2 4331-1 #### ELSY TABOR (32205) [facility] ([facility]) [address] [place], [place] [id number] CARDIAC STRESS/REST INJECTIO Non 05-20-2023 CARDIAC STRESS/REST INJECTION Patient Name: ALISSON MCFADDEN STUDY: CARDIAC STRESS/REST INJECTION; PART 2 STRESS OR REST (NO CHARGE); CARDIAC STRESS/REST (MYOCARDIAL PERFUSION/MIBI); 05/20/2023 12:44 pm; 05/20/2023 12:45 pm; 05/20/2023 12:43 pm INDICATION: chest pain R07.9: Chest pain. COMPARISON: None. ACCESSION NUMBER(S): [id number]; [id number]; [id number] ORDERING CLINICIAN: JOSE BEY TECHNIQUE: DIVISION OF NUCLEAR MEDICINE STRESS MYOCARDIAL PERFUSION SCAN, ONE DAY PROTOCOL The patient received an intravenous dose of 10.9 mCi of Tc-99m Myoview and resting emission tomographic (SPECT) images of the myocardium were acquired. The patient then exercised via treadmill stress to 97 % of MPHR and achieved 7.1 METS. At peak stress 35 mCi of Tc-99m Myoview were administered and stress phase SPECT images of the myocardium were then acquired. These included ECG-gated images to assess and quantify ventricular function. A low-dose, nondiagnostic regional CT was utilized for attenuation correction purposes. FINDINGS: Both stress and rest studies demonstrate grossly normal perfusion throughout the left ventricle. The left ventricle is normal in size. Gated images demonstrate normal LV wall motion with an LV EF estimated at greater than 65%. Attenuation correction CT images demonstrate no gross anatomic abnormality. IMPRESSION: 1. Normal myocardial perfusion study without evidence of ischemia or prior infarction. 2. The left ventricle is normal in size. 3. Normal LV wall motion with an LV EF estimated at greater than 65%. I personally reviewed the images/study and I agree with the findings as stated. This study was interpreted at [place], [place]. Electronically signed by: WALDO PIERRE MD Normal [facility] Echocardiogramon 05-20-2023 Echocardiography [facility] [place] [address] [phone], TRANSTHORACIC ECHOCARDIOGRAM REPORT Patient Name: ALISSON Kathleen LESA Reading Physician: [id number] Jose Bey MD Study Date: 05/20/2023 Referring Physician: JOSE BEY MD MRN/PID: [id number] PCP: Accession/Order#: [id number] Department Location: [facility] Echo Lab Date of : 1945 Fellow: Gender: F Nurse: Isi Peguero RN Admit Date: Service Center Assistant: Marlon Bradford [facility] Admission Status: Outpatient Additional Staff: Height: 160.02 cm CC Report to: Weight: 68.04 kg Study Type: Echocardiogram BSA: 1.71 m2 Blood Pressure: 182 /68 mmHg Diagnosis/ICD: Z13.6-Encounter for screening for cardiovascular disorders Indication: Procedure/CPT: Echo Complete w Full [id number] Study Detail: The following Echo studies were performed: 2D, M-Mode, Doppler and color flow. Agitated saline used as a contrast agent for intraseptal flow evaluation. PHYSICIAN INTERPRETATION: Left Ventricle: Left ventricular systolic function is normal, with an estimated ejection fraction of 60%. There are no regional wall motion abnormalities. The left ventricular cavity size is normal. Spectral Doppler shows an impaired relaxation pattern of left ventricular diastolic filling. Left Atrium: The left atrium is normal in size. Bubble study is positive for yohrp-ev-[id number] shunt, consistent with a patent foramen ovale (PFO). Right Ventricle: The right ventricle is normal in size. There is normal right ventricular global systolic function. Right Atrium: The right atrium is normal in size. Aortic Valve: The aortic valve is trileaflet. There is no evidence of aortic valve regurgitation. The peak instantaneous gradient of the aortic valve is 8.6 mmHg. The mean gradient of the aortic valve is 5.0 mmHg. Mitral Valve: The mitral valve is normal in structure. There is no evidence of mitral valve regurgitation. Tricuspid Valve: The tricuspid valve is structurally normal. No evidence of tricuspid regurgitation. Pulmonic Valve: The pulmonic valve is not well visualized. There is no indication of pulmonic valve regurgitation. Pericardium: There is no pericardial effusion noted. Aorta: The aortic root is normal. Systemic Veins: The inferior vena cava appears to be of normal size. There is IVC inspiratory collapse greater than 50%. CONCLUSIONS: 1. Left ventricular systolic function is normal with a 60% estimated ejection fraction. 2. Spectral Doppler shows an impaired relaxation pattern of left ventricular diastolic filling. 3. Bubble study is positive for wbxms-en-vuix shunt, consistent with a patent foramen ovale (PFO). QUANTITATIVE DATA SUMMARY: 2D MEASUREMENTS: Normal Ranges: Ao Root d: 3.50 cm (2.0-3.7cm) LAs: 3.20 cm (2.7-4.0cm) IVSd: 1.20 cm (0.6-1.1cm) LVPWd: 0.95 cm (0.6-1.1cm) LVIDd: 4.02 cm (3.9-5.9cm) LVIDs: 2.34 cm LV Mass Index: 83.1 g/m2 LV % FS 41.8 % LA VOLUME: Normal Ranges: LA Vol A4C: 37.0 ml (22+/-6mL/m2) LA Vol A2C: 43.5 ml LA Vol BP: 40.9 ml LA Vol Index A4C: 21.6ml/m2 LA Vol Index A2C: 25.4 ml/m2 LA Vol Index BP: 23.9 ml/m2 LA Area A4C: 15.8 cm2 LA Area A2C: 16.8 cm2 LA Major [place] A4C: 5.7 cm LA Major [place] A2C: 5.5 cm LA Volume Index: 20.6 ml/m2 LA Vol A4C: 35.2 ml LA Vol A2C: 43.9 ml LV SYSTOLIC FUNCTION BY 2D PLANIMETRY (MOD): Normal Ranges: EF-A4C View: 64.2 % (>=55%) EF-A2C View: 57.4 % EF-Biplane: 61.8 % LV DIASTOLIC FUNCTION: Normal Ranges: MV Peak E: 0.67 m/s (0.7-1.2 m/s) MV Peak A: 1.00 m/s (0.42-0.7 m/s) E/A Ratio: 0.67 (1.0-2.2) MV lateral e' 0.10 m/s MV medial e' 0.07 m/s MITRAL VALVE: Normal Ranges: MV DT: 278 msec (150-240msec) AORTIC VALVE: Normal Ranges: AoV Vmax: 1.47 m/s (<=1.7m/s) AoV Peak P.6 mmHg (<20mmHg) AoV Mean P.0 mmHg (1.7-11.5mmHg) LVOT Max Sin: 1.15 m/s (<=1.1m/s) AoV VTI: 32.90 cm (18-25cm) LVOT VTI: 26.40 cm LVOT Diameter: 2.00 cm (1.8-2.4cm) AoV Area, VTI: 2.52 cm2 (2.5-5.5cm2) AoV Area,Vmax: 2.46 cm2 (2.5-4.5cm2) AoV Dimensionless Index: 0.80 RIGHT VENTRICLE: RV Basal 2.91 cm RV Mid 2.24 cm RV Major 7.5 cm TAPSE: 21.2 mm RV s' 0.12 m/s PULMONIC VALVE: Normal Ranges: PV Accel Time: 130 msec (>120ms) PV Max Sin: 1.0 m/s (0.6-0.9m/s) PV Max P.2 mmHg [id number] Jose Bey MD Electronically signed on 05/20/2023 at 12:28:48 PM Final [facility] Narrative Note - Outpatient- CPS for bubbleson 05-20-2023 Narrative Note - Outpatient-CPS for bubbles Narrative Note: Discipline/ClinicCPS for bubbles Description Called to CPS to administer bubbles. a 22 g IV in the L AC present from [facility] med. IV flushed easily. Administered bubble test times 1 as certified medical technician assistant instructed. Once test completed IV flushed with NS then patient taken back downstairs with IV intact. Patient tolerated without complaint. Electronic Signatures: Dia Ji (RN) (Signed 20-May-2023 09:39) Authored: Narrative Note - OP Last Updated: 20-May-2023 09:39 by Dia Ji (RN) [facility]ng[facility] Nuclear Orderon 2022 [place] [address] [phone], Nuclear Treadmill Stress Test Patient Name: ALISSON MCFADDEN Ordering Physician: Study Date: 05/20/2023 Reading Physician: [id number] Bey MD MRN/PID: [id number] Supervising Rufino Bey Physician: Accession/Order#: [id number] Referring Physician: Rufino Bey MD Date of : 1945 PCP: Gender: F Fellow: Admit Date: 05/20/2023 Fellow: Admission Status: Outpatient Manager Case Management: Height: 160.02 cm Nurse: N/A Weight: 69.40 kg Service Center Assistant: N/A BSA: 1.73 m2 Technologist: Renny Martinez SPEAKING UNIT ASSEMBLER, CCT BMI: 27.10 kg/m2 Additional Staff: Age: 78 years cc report to: Patient Location: [facility] Stress Lab cc report to: Study Type: Syngo Nuclear Order Diagnosis/ICD: R07.9-Chest pain, unspecified Indication: Chest Pain Procedure/CPT: Stress Test Interpretation-78041; Stress Test Supervision-[id number] Falls Risk: Moderate: Patient has moderate risk for sustaining a fall; a falls prevention plan has been implemented. Study Details: Correct procedure and correct patient verified verbally and with ID Band checked. Patient History: Hypertension. Allergies: None. Smoker: Current, 1/2 PPD packs per day. Diabetes: No. Medications: Lisinopril and meloxicam. The patient did not take medications as prescribed. Patient Performance: The patient exercised to stage II on a Terry protocol for 6 minutes and 00 seconds, achieving 7.1 METS. Patient received a total of 35 mCi of Myoview at 8:46:28 AM. The peak heart rate achieved was 139 bpm, which was 97 % of the age predicted target heart rate of 144 bpm. The resting blood pressure was 154/82 mmHg with a heart rate of 53 bpm. The standing blood pressure was 176/86 mmHg with a heart rate of 61 bpm. The patient developed dyspnea during the stress exam. The symptoms resolved with rest. The blood pressure response was hypertensive. The test was terminated due to: dyspnea and MPHR >85%. Baseline ECG: Resting ECG showed normal sinus rhythm with rare premature atrial contractions. Stress ECG: Stress ECG showed normal sinus rhythm. Stress Stage Data: + +---+--- ---+-------+ HR Sys BP Jones BP + +---+--- ---+-------+ Baseline Resting 53 154 82 + +---+--- ---+-------+ Baseline Standing 61 176 86 + +---+--- ---+-------+ Stage I 110 203 93 + +---+--- ---+-------+ Stage II 139 194 119 + +---+--- ---+-------+ Recovery ECG: Recovery ECG showed normal sinus rhythm, with Occassional PAC. The heart rate recovery was normal. + +---+------+-- -----+ HR Sys BP Jones BP + +---+------+-- -----+ Recovery I 113 + +---+------+-- -----+ Recovery II 83 184 86 + +---+------+-- -----+ Recovery IV 76 165 76 + +---+------+-- -----+ Baseline Echo: There are no regional wall motion abnormalities at baseline. Summary: 1. Baseline EKG shows sinus bradycardia with nonspecific ST-T segment changes. 2. Patient exercised for 6 minutes achieving 7.1 METS. 3. Exercise capacity is average for age. 4. Heart rate response to exercise is normal. Blood pressure response to exercise is hypertensive. 5. With exercise no ST-T segment changes suggestive of ischemia or sustained ventricular arrhythmias are seen. Occasional PACs seen. 6. Exercise stress EKG is negative for ischemia. 7. Velez treadmill score is 6 (low risk). 8. Adequate level of stress achieved. 9. Nuclear image results are reported separately. [id number] Jose Bey MD Electronically signed on 05/20/2023 at 1:16:22 PM Final Normal [facility] Office Visit (Cardiology)on 05-13-2023 Follow-up visit Diagnoses/Problems Assessed Other chest pain (786.59) (R07.89) Benign hypertension (401.1) (I10) Chest pain (786.50) (R07.9) Orders Chest pain Echocardiogram; Status:Hold For - Scheduling; Requested for:13May2023; NM Cardiac Stress/Rest Nuclear Med Order; Status:Hold For - Scheduling; Requested for:13May2023; Radiologist to Determine Optimal Study : Y What are the patient's signs and symptoms? : chest pain SocHx: Current smoker Tobacco Use Screening; Status:Complete; Done: [id number] Chief Complaint Chest discomfort History of Present Lhpppau43-onvz-xbo female with a medical history of hypertension here for evaluation of the following complaints: Chest discomfort -Patient notes that she has had intermittent chest discomfort for many years. However more recently it has become more frequent and more intense. She has been seeing under significant emotional stress at home; and has noted chest discomfort in the center of her chest; the changes with occasional position changes. It occurs for 30 seconds at a time but can come and go for about an hour. She denies any significant shortness of breath with exertion. Denies any orthopnea/PND. Does not have any lower extremity edema. Does appear to have uncontrolled hypertension at home and here with blood pressure in the 150-160 systolic Active Problems Problems Left hip pain (719.45) (M25.552) Right hip pain (719.45) (M25.551) Unilateral primary osteoarthritis, left hip (715.15) (M16.12) Surgical History Problems History of Hip replacement History of Tonsillectomy Current Meds Medication NameInstruction Lisinopril 40 MG Oral TabletTAKE 1 TABLET DAILY. Meloxicam 10 MG Oral CapsuleTAKE 1 TAB DAILY Allergies Medication No Known Drug Allergies Recorded By: Clau Salazar; 05/13/2023 11:04:50 AM Family History Mother Family history of lung cancer (V16.1) (Z80.1) Father Family history of lung cancer (V16.1) (Z80.1) Maternal Grandmother Family history of cerebrovascular accident (CVA) (V17.1) (Z82.3) Aunt Family history of cerebrovascular accident (CVA) (V17.1) (Z82.3) Social History Problems Consumes alcohol (V49.89) (Z78.9) Current smoker (305.1) (F17.200) 1/2 ppd Drinks coffee No illicit drug use Patient has healthcare proxy and living will (V49.89) (Z78.9) Review of Systems Constitutional: Denies any fever or chills Eyes: Denies any eye pain or blurry vision ENT: Denies any ear pain or hearing loss Cardiovascular: The heart rate is not slow, the heart rate is not fast Respiratory: Denies any asthma/wheezing Gastrointestinal: Denies any tanisha colored stools or fatty food intolerance Genitourinary: Denies any blood in the urine or pelvic pain Musculoskeletal: Denies any swelling in the joints or difficulty walking Skin: Denies any skin lumps or skin lesions Neurological: Denies any dizziness/tingling Vitals Vital Signs Recorded: [id number] 11:01AM Heart Rate88 Fvsfbcos053, RUE, Sitting Kqlsrhwbq63, RUE, Sitting Height5 ft 3 in Tacutd913 lb 3.2 oz BMI Ojwdtejcmc35.14 kg/m2 BSA Calculated1.73 Tobacco Usea) Yes Patient encouraged to stop using tobacco productsYes Falls Screening (Age 18+)b) One or more falls in the last year O2 Bxxjvfqepy57 Physical Exam General: AANDOx3 HEENT: NC/AT; EOMI; PERRLA, external ear is normal Neck: supple; no JVD Chest: CTAB; no wheezing CVS: S1S2 normal, no murmurs Abdomen: Soft, NT/ND, no organomegaly Extremities: no clubbing/cyanosis/edema Neuro: Grossly intact Results/Data TROPONIN I, HIGH [id number] 02:59PMNon Ambulatory, Provider Ordering Provider: SJ Browne516 Test NameResultFlagReference TROPONIN I, HIGH SENSITIVITY4 ng/L0 - 13 . Less than 99th percentile of normal range cutoff- Female and children under 18 years old <14 ng/L; Male <21 ng/L: Negative Repeat testing should be performed if clinically indicated. . Female and children under 18 years old 14-50 ng/L; Male 21-50 ng/L: Consistent with possible cardiac damage and possible increased clinical risk. Serial measurements may help to assess extent of myocardial damage. . >50 ng/L: Consistent with cardiac damage, increased clinical risk and myocardial infarction. Serial measurements may help assess extent of myocardial damage. . NOTE: Children less than 1 year old may have higher baseline troponin levels and results should be interpreted in conjunction with the overall clinical context. . NOTE: Troponin I testing is performed using a different testing methodology at [facility] than at other [facility]. Direct result comparisons should only be made within the same method. TROPONIN I, HIGH [id number] 01:48PMNon Ambulatory, Provider Ordering Provider: SJ PATRICK [id number] Test NameResultFlagReference TROPONIN I, HIGH SENSITIVITY4 ng/L0 - 13 . Less than 99th percentile of normal range cutoff- Female and children under 18 years old <14 ng/L; Male < (more content not included)... Normal [facility] Tobacco Screening.on 023 Fall risk assessment b) One or more falls in the last year [facility] y[facility] Work Phone: [phone] [facility] a) Yes [facility]-Cardiolog -[employer] Work Phone: [phone] Tobacco Screening. Yes MP-Car diolog y[facility] Work Phone: BASIC METABOLIC PANELon 04-03-2022 Anion gap [Moles/Vol] 12 mmol/L Normal 10 - 20 [facility] Comment on above: Performed By: #### B MP ####[address] [address] Calcium [Mass/Vol] 9.0 mg/dL Normal 8.6 - 10.3 [facility] Comment on above: Performed By: #### B MP ####[address] [address] Chloride [Moles/Vol] 109 mmol/L High 98 - 107 [facility] Comment on above: Performed By: #### B MP ####[address] [address] Creatinine [Mass/Vol] 0.65 mg/dL Normal 0.50 - 1.05 [facility] Comment on above: Performed By: #### B MP ####[address] [address] eGFR FEMALE >90 Normal >90 [facility] Comment on above: Result Comment: CALC ULATIONS OF ESTIMATED GFR ARE PERFORMED USING THE 2020 CKD-EPI STUDY REFIT EQUATION WITHOUT THE RACE VARIABLE FOR THE IDMS-TRACEABLE CREATININE METHODS. https://jasn.asnjournals.org/content//ASN.17212261 88 Performed By: #### B MP ####[address] [address] Glucose [Mass/Vol] 98 mg/dL Normal 74 - 99 [facility] Comment on above: Performed By: #### B MP ####[address] [address] HCO3 (Bld) [Moles/Vol] 22 mmol/L Normal 21 - 32 [facility] Comment on above: Performed By: #### B MP ####[address] [address] Potassium [Moles/Vol] 4.1 mmol/L Normal 3.5 - 5.3 [facility] Comment on above: Performed By: #### B MP ####[address] [address] Sodium [Moles/Vol] 139 mmol/L Normal 136 - 145 [facility] Comment on above: Performed By: #### B MP ####[address] [address] Urea nitrogen [Mass/Vol] 17 mg/dL Normal 6 - 23 [facility] Comment on above: Performed By: #### B MP ####[place] [id number] BNPon 04-30-2023 Natriuretic peptide B (Bld) [Mass/Vol] 41 pg/mL Normal 0 - 99 [facility] Comment on above: Result Comment: . <1 00 pg/mL - Heart failure unlikely 100-299 pg/mL - Intermediate probability of acute heart . failure exacerbation. Correlate with clinical . context and patient history. >=300 pg/mL - Heart Failure likely. Correlate with clinical . context and patient history. BNP testing is performed using different testing methodology at [facility] than at other [facility]. Direct result comparisons should only be made within the same method. Performed By: #### B NP2 #### [address] [address] CBC AND DIFFERENTIALon 04-30 % AUTOMATED IMMATURE GRAN 0.3 % Normal 0.0 - 0.9 [facility] Comment on above: Result Comment: Mariza ture Granulocyte Count (IG) includes promyelocytes, myelocytes and metamyelocytes but does not include bands. Percent differential counts (%) should be interpreted in the context of the absolute cell counts (cells/L). Performed By: #### C BCDF #### [address] [address] Basophils (Bld) [#/Vol] 0.07 10*3/uL Normal 0.00 - 0.10 [facility] Comment on above: Performed By: #### C BCDF #### [address] [address] Basophils/100 WBC (Bld) 0.9 % Normal 0.0 - 2.0 [facility] Comment on above: Performed By: #### C BCDF #### [address] [address] Eosinophils (Bld) [#/Vol] 0.16 10*3/uL Normal 0.00 - 0.40 [facility] Comment on above: Performed By: #### C BCDF #### [address] [address] Eosinophils/100 WBC (Bld) 2.0 % Normal 0.0 - 6.0 [facility] Comment on above: Performed By: #### C BCDF #### [address] [address] Erythrocyte distribution width (RBC) [Ratio] 13.2 % Normal 11.5 - 14.5 [facility] Comment on above: Performed By: #### C BCDF #### [address] [address] Hematocrit (Bld) [Volume fraction] 40.6 % Normal 36.0 - 46.0 [facility] Comment on above: Performed By: #### C BCDF #### [address] [address] Hemoglobin (Bld) [Mass/Vol] 13.3 g/dL Normal 12.0 - 16.0 [facility] Comment on above: Performed By: #### C BCDF #### [address] [address] Lymphocytes (Bld) [#/Vol] 3.12 10*3/uL High 0.80 - 3.00 [facility] Comment on above: Performed By: #### C BCDF #### [address] [address] Lymphocytes/100 WBC (Bld) 39.6 % Normal 13.0 - 44.0 [facility] Comment on above: Performed By: #### C BCDF #### [address] [address] MCHC (RBC) [Mass/Vol] 32.8 g/dL Normal 32.0 - 36.0 [facility] Comment on above: Performed By: #### C BCDF #### [address] [address] MCV (RBC) [Entitic vol] 89 fL Normal 80 - 100 [facility] Comment on above: Performed By: #### C BCDF #### [address] [address] Monocytes (Bld) [#/Vol] 0.70 10*3/uL Normal 0.05 - 0.80 [facility] Comment on above: Performed By: #### C BCDF #### [address] [address] Monocytes/100 WBC (Bld) 8.9 % Normal 2.0 - 10.0 [facility] Comment on above: Performed By: #### C BCDF #### [address] [address] Neutrophils (Bld) [#/Vol] 3.80 10*3/uL Normal 1.60 - 5.50 [facility] Comment on above: Result Comment: Perc ent differential counts (%) should be interpreted in the context of the absolute cell counts (cells/L). Performed By: #### C BCDF #### [address] [address] Neutrophils/100 WBC (Bld) 48.3 % Normal 40.0 - 80.0 [facility] Comment on above: Performed By: #### C BCDF #### [address] [address] Platelets (Bld) [#/Vol] 308 10*3/uL Normal 150 - 450 [facility] Comment on above: Performed By: #### C BCDF #### [address] [address] RBC 4.59 x10E12/L Normal 4.00 - 5.20 [facility] Comment on above: Performed By: #### C BCDF #### [place] [address] [place] [address] WBC (Bld) [#/Vol] 7.9 10*3/uL Normal 4.4 - 11.3 [facility] Comment on above: Performed By: #### C BCDF #### [address] [address] CHEST 2 VIEW PA AND LATon CHEST 2 VIEW PA AND LAT Patient Name: ALISSON MCFADDEN STUDY: TH CHEST 2 VIEW PA AND LAT; 04/30/2023 1:04 pm INDICATION: Chest Pain . COMPARISON: None. ACCESSION NUMBER(S): [id number] ORDERING CLINICIAN: SJ PATRICK FINDINGS: CARDIOMEDIASTINAL SILHOUETTE: Cardiomediastinal silhouette is normal in size and configuration. LUNGS: No consolidation, pneumothorax, or significant effusion. ABDOMEN: No remarkable upper abdominal findings. BONES: No acute osseous changes. IMPRESSION: 1. No evidence of acute cardiopulmonary process. Electronically signed by: GUTIERREZ PORTER MD Normal [facility] Complete Blood Count + Diffe rentialon 04-30-2023 Basophils/100 WBC (Bld) 0.9 % 0.0 - 2.0 -Cardiolog [address] Work Phone: Erythrocyte distribution width (RBC) [Ratio] 13.2 % See Below [address] Work Phone: Comment on above: Reference Range: 11. 5 - 14.5 Hematocrit (Bld) [Volume fraction] 40.6 % See Below [address] Work Phone: Comment on above: Reference Range: 36. 0 - 46.0 Hemoglobin (Bld) [Mass/Vol] 13.3 g/dL See Below [facility] [address] Work Phone: [phone] Comment on above: Reference Range: 12. 0 - 16.0 Lymphocytes/100 WBC (Bld) 39.6 % See Below [facility] [address] Work Phone: [phone] Comment on above: Reference Range: 13. 0 - 44.0 MCHC (RBC) [Mass/Vol] 32.8 g/dL See Below [facility] [address] Work Phone: Comment on above: Reference Range: 32. 0 - 36.0 MCV (RBC) [Entitic vol] 89 fL 80 - [address] Work Phone: [phone] Monocytes/100 WBC (Bld) 8.9 % 2.0 - 10.[address] Work Phone: [phone] Neutrophils/100 WBC (Bld) 48.3 % See Below [address] Work Phone: [phone] Comment on above: Reference Range: 40. 0 - 80.0 Platelets (Bld) [#/Vol] 308 10*3/uL 150 - 450 [facility] [address] Work Phone: [phone] RBC (Bld) [#/Vol] 4.59 {x10E12/L} See Below [facility] [address] Work Phone: [phone] Comment on above: Reference Range: 4.0 0 - 5.20 WBC (Bld) [#/Vol] 7.9 10*3/uL 4.4 - 11.3 -Car diolog [address] Work Phone: [phone] Complete Blood Count + Differential 0.07 {x10E9/L} See Below [facility] [address] Work Phone: [phone] Comment on above: Reference Range: 0.0 0 - 0.10 Complete Blood Count + Differential 0.16 {x10E9/L} See Below [address] Work Phone: Comment on above: Reference Range: 0.0 0 - 0.40 Complete Blood Count + Differential 0.70 {x10E9/L} See Below [address] Work Phone: [phone] Comment on above: Reference Range: 0.0 5 - 0.80 Complete Blood Count + Differential 3.12 {x10E9/L} above high threshold See Below [address] Work Phone: Comment on above: Reference Range: 0.8 0 - 3.00 Complete Blood Count + Differential 3.80 {x10E9/L} See Below [address] Work Phone: Comment on above: Reference Range: 1.6 0 - 5.50 Percent differential counts (%) should be interpreted in the context of the absolute cell counts (cells/L). Complete Blood Count + Differential 2.0 % 0.0 - 6.[address] Work Phone: Complete Blood Count + Differential 0.3 % 0.0 - 0.[address] Work Phone: Comment on above: Immature Granulocyte Count (IG) includes promyelocytes, myelocytes and metamyelocytes but does not include bands. Percent differential counts (%) should be interpreted in the context of the absolute cell counts (cells/L). D-DIMER, VTE EXCLUSIONon D-DIMER, VTE EXCLUSION 493 ng/mL FEU Normal < or = 500 [facility] Comment on above: Result Comment: The VTE Exclusion D-Dimer assay is reported in ng/mL Fibrinogen Equivalent Units (FEU). Per manufacturers instructions for use, a value of less than 500 ng/mL (FEU) may help to exclude DVT or PE in outpatients when the assay is used with a clinical pretest probability assessment. ([facility] must utilize and document eCalc Wells Score Deep Vein Thrombosis Risk for DVT exclusion only; Emergency Department should utilize Guidelines for Emergency Department Use of the VTE Exclusion D-Dimer and Clinical Pretest probability assessment model for DVT or PE exclusion.) Performed By: #### D IMEX #### [facility] [address] [place] [address] Laboratory - Chemistry and C hemistry - challengeon 04-30-2023 Anion gap [Moles/Vol] 12 mmol/L 10 - 20 -[facility] [address] Work Phone: Calcium [Mass/Vol] 9.0 mg/dL 8.6 - 10.3 MP-Car diolog [place] [address] [place] Work Phone: Chloride [Moles/Vol] 109 mmol/L above high threshold 98 - 107 -Cardiolog [address] Work Phone: CO2 [Moles/Vol] 22 mmol/L 21 - 32 -Cardio log [place] [address] [place] Work Phone: Creatinine [Mass/Vol] 0.65 mg/dL See Below [facility] [address] Work Phone: Comment on above: Reference Range: 0.5 0 - 1.05 Glucose [Mass/Vol] 98 mg/dL 74 - 99 -Car diolog [place] [address] [place] Work Phone: Potassium [Moles/Vol] 4.1 mmol/L 3.5 - 5.3 -Cardiolog [address] Work Phone: Sodium [Moles/Vol] 139 mmol/L 136 - 145 -Car diolog [address] Work Phone: Urea nitrogen [Mass/Vol] 17 mg/dL 6 - 23 -Cardiolog [address] Work Phone: No Panel Informationon 04-30 41 pg/mL 0 - 99 -Cardiolog [address] Work Phone: Comment on above: . <100 pg/mL - Heart failure qyzxswvv219-910 pg/mL - Intermediate probability of acute heart. failure exacerbation. Correlate with clinical. context and patient history. >=300 pg/mL - Heart Failure likely. Correlate with clinical. context and patient history.BNP testing is performed using different testing methodology at [facility] than at other [facility]. Direct result comparisons should only be made within the same method. >90 >90 [facility] [address] [employer] Work Phone: Comment on above: CALCULATIONS OF THONY MATED GFR ARE PERFORMED USING THE 2020 CKD-EPI STUDY REFIT EQUATION WITHOUT THE RACE VARIABLE FOR THE IDMS-TRACEABLE CREATININE METHODS.https://jasn.asnjournals.org/content/early//ASN. 7365296139 493 {ng/mL_FEU} < or = 500 [facility]-Cardio log [facility] [address] [employer] Work Phone: Comment on above: The VTE Exclusion D- Dimer assay is reported in ng/mL Fibrinogen Equivalent Units (FEU). Per manufacturers instructions for use, a value of less than 500 ng/mL (FEU) may help to exclude DVT or PE in outpatients when the assay is used with a clinical pretest probability assessment. ([facility] must utilize and document eCalc Wells Score Deep Vein Thrombosis Risk for DVT exclusion only; Emergency Department should utilize Guidelines for Emergency Department Use of the VTE Exclusion D-Dimer and Clinical Pretest probability assessment model for DVT or PE exclusion.) Provider Note - ED v3on 06-3 Provider Note - ED v3 Provider Note: Results/Vital Signs: Pediatric Clinical Scoring (ESHA) is no recent ESHA charted on this account Chart Review: ED NOTES ED NOTES: Chief complaint: Chest pain History of chief complaint: Patient presents to the emergency department secondary to chest pain. Patient states that this is actually been a longstanding and intermittent issue for quite some time. She states that today while cooking in her kitchen she began having left-sided chest pain prompting the emergency room visit. At the time of arrival the patient states she has no pain but is simply feeling anxious about being here. Denies dyspnea. No cough. No fever. No known sick contacts. Family at bedside states that the patient has had increasing stress over her 's health. Allergies: Reviewed Home medications: Reviewed Medical history: Reviewed Surgical history: Reviewed Family history: Reviewed Social history: Reviewed Review of systems: I have reviewed constitutional HEENT cardiovascular pulmonary gastrointestinal genitourinary dermatologic psychiatric musculoskeletal neurologic and except where mentioned above all other systems are noted to be unremarkable. Nursing notes have been reviewed Physical examination: General appearance: Patient is sitting up in bed and appears well. Not toxic in appearance. Slightly apprehensive but otherwise not dyspneic or diaphoretic. HEENT: Normocephalic and atraumatic Neck: Trachea is midline Cardiac: Regular sinus rate and rhythm. No murmurs. Lungs: Clear to auscultation bilaterally without wheezing Abdomen: Soft, nontender, bowel sounds are normal. Musculoskeletal: No gross bony deformity identified Neurologic: Moving all 4 extremities independently Dermatologic: No jaundice or pallor Psychiatric: Awake, alert, and oriented Clinical course: Twelve-lead EKG was interpreted by myself and this was noted to contribute directly to patient care. Study reveals normal sinus rhythm at 79 bpm, normal axis, normal R wave progression, no acute ischemic changes, no S1 Q3 T3 is identified Medical decision making: Patient was given a dose of IV Ativan here which helped her anxiety. She developed no chest pain while here in the emergency room. Given the chronic nature of the patient's symptoms, a completely normal EKG, and serial negative troponin x3 I feel she can be discharged safely. Assessment: #1 nonspecific chest pain #2 established hypertension #3 tobacco abuse Plan: Patient will be referred to cardiology on-call. I recommended that she follow-up to have a stress test on an outpatient basis given the chronic nature of her symptoms. Physical instructed to return to the ER at any time if worse. HISTORY OF PRESENTING ILLNESS ALISSON is a 78 year old Female and was seen by me at 30-Apr-2023 12:28 for a chief complaint of chest pain (Patient to ED reference chest pain. Patient started having mid sternal to left sided chest pain and left arm numbness that started about 45 minutes prior to ED while at rest. She isn't on a blood thinner. Negative any nausea/vomiting but is lightheaded.) . Triage Information: Most recent Vital Sign Value Date Temp (F): 97.6 04-30-2023 12:25 Temp (C): 36.4 04-30-2023 12:25 Heart Rate (beats/min): 68 04-30-2023 12:25 Respirations (breaths/min): 15 04-30-2023 12:25 SpO2 (%): 97 04-30-2023 12:25 BP Systolic (mm Hg): 206 04-30-2023 12:25 BP Diastolic (mm Hg): 84 04-30-2023 12:25 PAST MEDICAL HISTORY ALLERGIES/INTOLERANCES: No Known Allergies HEALTH HISTORY: No documented data. OUTPATIENT MEDICATIONS: Home Medications Review Status for Reconciliation: Complete Med Status: Patient Currently Takes Medications Drug Name: lisinopril 40 mg oral tablet Instructions: 1 tab(s) orally once a day Drug Name: meloxicam 15 mg oral tablet Instructions: 1 tab(s) orally once a day Drug Name: Fish Oil oral capsule Instructions: 1 cap(s) orally once a day Drug Name: Multiple Vitamins oral tablet Instructions: 1 tab(s) orally once a day Drug Name: Ocuvite oral tablet Instructions: 1 tab(s) orally once a day SIGNIFICANT EVENTS: No documented data. CRITICAL CARE RESULTS: Recent Lab Results: I have reviewed these laboratory results: Troponin I, High Sensitivity Trending View [id number] 14:59:00 30-Apr-2023 13:48:00 30-Apr-2023 12:49:00 Troponin I, High Sensitivity4 4 4 Complete Blood Count + Differential 30-Apr-2023 12:49:00 ResultValue White Blood Cell Count 7.9 Red Blood Cell Count 4.59 HGB 13.3 HCT 40.6 MCV 89 MCHC 32.8 PLT 308 RDW-CV 13.2 Neutrophil % 48.3 Immature Granulocytes % 0.3 Lymphocyte % 39.6 Monocyte % 8.9 Eosinophil % 2.0 Basophil % 0.9 Neutrophil Count 3.80 Lymphocyte Count 3.12 H Monocyte Count 0.70 Eosinophil Count 0.16 Basophil Count 0.07 Basic Metabolic Panel 30-Apr-2023 12 (more content not included)... Normal [facility] Radiologyon 04-30-2023 XR Chest 2 Views Normal [facility] [address] Work Phone: Risk Screen - Adult Emergenc yon 04-30-2023 Risk Screen - Adult Emergency Preferred Language: Preferred Language: Preferred Language for Discussing Health Care (patient/designee)Gabonese Patient Preferred Pharmacy: Patient Preferred Pharmacy Statement: I have reviewed and updated the patient's preferred pharmacy selection for today's visit. Advanced Directives: Advance Directive/DNRyes Advance Directive typeLiving Will Family Violence Adult: Abuse Screen: Are you or have you been threatened or abused physically, emotionally, or sexually by anyoneno Learning Assessment (Patient): Learning Assessment (Patient): Patient is Able to be Assessed for Learningyes Factors Influencing Readiness to Learnanxiety; pain Factors that Impact Ability to Learnnone Devices/Methods Used to Communicatenone Learning Preferencesaudio Cultural Considerationsnone Developmental Considerationsnone Pentecostal Considerationsnone Learning Assessment (Other Learner): Learning Assessment (Other Learner): Other learner availableno Pressure Injury/TB/Substance: Pressure Injury: Pressure Injury Present on Admissionno Do you have a coughno Smoking Statusmoderate user (uses 11-30 cig/day, OR 0.5-1.5 ppd, OR 2-3 cans/pouches loose leaf tobacco per week, OR 0.5-1.5 vape pods per day) Tobacco Cessation Education (provide if tobacco use within the last 12 mos) patient declined Alcohol Useoccasionally Drug Usedenies Admission Risk Screen: Significant IndicatorsComplete CAGE: CAGE: Is this an injured patient at a Trauma Center ([facility]/Rashad/David/Yessenia/Claudy Hernandez/Jose): no Electronic Signatures: Cl Corado (JAY) (Signed 30-Apr-2023 12:34) Authored: Preferred Language, Patient Preferred Pharmacy, Advanced Directives, Family Violence Adult, Learning Assessment (Patient), Learning Assessment (Other Learner), Pressure Injury/TB/Substance, Pressure Injury, CAGE Last Updated: 30-Apr-2023 12:34 by Cl Corado (JAY) Normal [facility] TROPONIN I, HIGH SENSITIVITY on 04-30-2023 TROPONIN I, HIGH SENSITIVITY 4 ng/L Normal 0 - 13 [facility] Comment on above: Result Comment: . Less than 99th percentile of normal range cutoff- Female and children under 18 years old <14 ng/L; Male <21 ng/L: Negative Repeat testing should be performed if clinically indicated. . Female and children under 18 years old 14-50 ng/L; Male 21-50 ng/L: Consistent with possible cardiac damage and possible increased clinical risk. Serial measurements may help to assess extent of myocardial damage. . >50 ng/L: Consistent with cardiac damage, increased clinical risk and myocardial infarction. Serial measurements may help assess extent of myocardial damage. . NOTE: Children less than 1 year old may have higher baseline troponin levels and results should be interpreted in conjunction with the overall clinical context. . NOTE: Troponin I testing is performed using a different testing methodology at [facility] than at other [facility]. Direct result comparisons should only be made within the same method. Performed By: #### T [facility] #### [place] [id number] TROPONIN I, HIGH SENSITIVITY 4 ng/L Normal 0 - 13 [facility] Comment on above: Result Comment: . Less than 99th percentile of normal range cutoff- Female and children under 18 years old <14 ng/L; Male <21 ng/L: Negative Repeat testing should be performed if clinically indicated. . Female and children under 18 years old 14-50 ng/L; Male 21-50 ng/L: Consistent with possible cardiac damage and possible increased clinical risk. Serial measurements may help to assess extent of myocardial damage. . >50 ng/L: Consistent with cardiac damage, increased clinical risk and myocardial infarction. Serial measurements may help assess extent of myocardial damage. . NOTE: Children less than 1 year old may have higher baseline troponin levels and results should be interpreted in conjunction with the overall clinical context. . NOTE: Troponin I testing is performed using a different testing methodology at [facility] than at other [facility]. Direct result comparisons should only be made within the same method. Performed By: #### T [facility] #### [address] [address] TROPONIN I, HIGH SENSITIVITY 4 ng/L Normal 0 - 13 [facility] Comment on above: Result Comment: . Less than 99th percentile of normal range cutoff- Female and children under 18 years old <14 ng/L; Male <21 ng/L: Negative Repeat testing should be performed if clinically indicated. . Female and children under 18 years old 14-50 ng/L; Male 21-50 ng/L: Consistent with possible cardiac damage and possible increased clinical risk. Serial measurements may help to assess extent of myocardial damage. . >50 ng/L: Consistent with cardiac damage, increased clinical risk and myocardial infarction. Serial measurements may help assess extent of myocardial damage. . NOTE: Children less than 1 year old may have higher baseline troponin levels and results should be interpreted in conjunction with the overall clinical context. . NOTE: Troponin I testing is performed using a different testing methodology at [facility] than at other [facility]. Direct result comparisons should only be made within the same method. Performed By: #### T [facility] #### [facility] [address] [place] [address] Tropinin I.cardiac panel High sensitivity method 4 ng/L 0 - 13 [facility] [place] Work Phone: Comment on above: .Less than 99th perc entile of normal range cutoff-Female and children under 18 years old <14 ng/L; Male <21 ng/L: NegativeRepeat testing should be performed if clinically indicated. .Female and children under 18 years old 14-50 ng/L; Male 21-50 ng/L:Consistent with possible cardiac damage and possible increased clinical risk. Serial measurements may help to assess extent of myocardial damage. .>50 ng/L: Consistent with cardiac damage, increased clinical risk andmyocardial infarction. Serial measurements may help assess extent of myocardial damage. . NOTE: Children less than 1 year old may have higher baseline troponin levels and results should be interpreted in conjunction with the overall clinical context. .NOTE: Troponin I testing is performed using a different testing methodology at [facility] than at other [facility]. Direct result comparisons should only be made within the same method. Tropinin I.cardiac panel High sensitivity method 4 ng/L 0 - 13 [facility] [place] Work Phone: Comment on above: .Less than 99th perc entile of normal range cutoff-Female and children under 18 years old <14 ng/L; Male <21 ng/L: NegativeRepeat testing should be performed if clinically indicated. .Female and children under 18 years old 14-50 ng/L; Male 21-50 ng/L:Consistent with possible cardiac damage and possible increased clinical risk. Serial measurements may help to assess extent of myocardial damage. .>50 ng/L: Consistent with cardiac damage, increased clinical risk andmyocardial infarction. Serial measurements may help assess extent of myocardial damage. . NOTE: Children less than 1 year old may have higher baseline troponin levels and results should be interpreted in conjunction with the overall clinical context. .NOTE: Troponin I testing is performed using a different testing methodology at [facility] than at other [facility]. Direct result comparisons should only be made within the same method. Tropinin I.cardiac panel High sensitivity method 4 ng/L 0 - 13 [facility] Work Phone: Comment on above: .Less than 99th perc entile of normal range cutoff-Female and children under 18 years old <14 ng/L; Male <21 ng/L: NegativeRepeat testing should be performed if clinically indicated. .Female and children under 18 years old 14-50 ng/L; Male 21-50 ng/L:Consistent with possible cardiac damage and possible increased clinical risk. Serial measurements may help to assess extent of myocardial damage. .>50 ng/L: Consistent with cardiac damage, increased clinical risk andmyocardial infarction. Serial measurements may help assess extent of myocardial damage. . NOTE: Children less than 1 year old may have higher baseline troponin levels and results should be interpreted in conjunction with the overall clinical context. .NOTE: Troponin I testing is performed using a different testing methodology at [facility] than at other [facility]. Direct result comparisons should only be made within the same method. Triage - EDon 04-30-2023 Triage - ED Quick Triage: The patient and/or guardian verbally acknowledges placement for services into the following (when Urgent Care Service hours are operating):emergency department Chart Review: ARRIVAL INFORMATION Mode of Arrival: private vehicle CHIEF COMPLAINT ALISSON MCFADDEN is a Female patient with a chief complaint of chest pain (Patient to ED reference chest pain. Patient started having mid sternal to left sided chest pain and left arm numbness that started about 45 minutes prior to ED while at rest. She isn't on a blood thinner. Negative any nausea/vomiting but is lightheaded.). Onset of the Complaint: 30-Apr-2023 11:45 Triage Date/Time: 30-Apr-2023 12:25 [place]LOTET: 2 Pain Rating (0-10): 8 = Severe Vital Signs: Temperature: 97.6F ( 36.4C) taken temporal Blood Pressure: 206/84 Mean: Heart Rate: 68 Respiratory Rate: 15 Pulse Oximetry: 97% on room air, no respiratory support. Height: 5 feet 3.00 inches. 160.0 CM Weight: 150.3 pounds. Calculated 68.2 kg. 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 Patient has homicidal thoughts: no Risk Screens Suicide Risk Screen In the Past Month: Have you wished you were or wished you could go to sleep and not wake up no In the Past Month: Have you had any actual thoughts of killing yourself no In Your Lifetime: Have you ever done anything, started to do anything, or prepared to do anything to end your life no Wilson Fall Scale Screening Has the patient fallen before (or is the patient in the ED as a result of a fall) has not had a fall Does the patient have an impaired gait does not have impaired gait Is the patient cognitively impaired not cognitively impaired Interventions: Wilson Fall Interventions: LOW INTERVENTIONS: *patient oriented to surroundings and call system, * patient/family falls education completed and documented, *patients fall status communicated during bedside handoff, *whiteboard updated, *mode of toileting discussed with patient, *bed in low position with brakes locked, *call light in reach, * non-skid footwear TRAVEL HISTORY Travel History Coronavirus Screening: no exposure or symptoms Travel Exposure History: NO travel to International locations in the past 30 days PAIN Pain Scale Used: MARNIE Pain Rating (0-10): 8 = Severe Past Medical History: Past Medical History Reviewedyes Electronic Signatures: Cl Corado (JAY) (Signed 30-Apr-2023 12:35) Authored: Quick Triage, Chart Review, Past Medical History Shaw Cárdenas (EMT-P) (Signed 30-Apr-2023 12:29) Entered: Risk Screens, Pain, Travel History, Chart Review, Scores Authored: Quick Triage, Risk Screens, Pain, Travel History, Chart Review, Scores Last Updated: 30-Apr-2023 12:35 by Cl Corado (JAY) [facility] PT Progress Noteon 2 PT Progress Note Therapy Diagnosis Assessed Left hip pain (719.45) (M25.552) Unilateral primary osteoarthritis, left hip (715.15) (M16.12) Plan Goals: Goals set and discussed today. Pt will demonstrate independence and compliance with HEP and self management, by week 2, goal met Activity Limitation: LEFS 26/80 or better for improved QOL, by week 6, goal met Balance: SLS L x 10 for decreased fall risk, by week 6, goal met Gait/Locomotion: Amb I without AD with normalized gait pattern for return to PLOF, by week 6, goal partially met Pain: Decrease max pain to less than or equal to 5/10 for improved QOL. , by week 6, goal met Strength: L LE MMT 4/5 throughout or better for reciprocal stair climbing, by week 6, goal met Planned interventions include: cryotherapy, education/instruction, gait training, home program, manual therapy, neuromuscular re-education, self care/home management, therapeutic activities, therapeutic exercises, vasopneumatic device and vasopneumatic device w/ cold . follow posterior hip precautions until clarified by MD; gait training - normalize gait with LRAD, stair climbing; transfer training: AD management with STS, bed mobility; ther ex: LE strengthening/flexibility within hip precautions; neuro re-ed: static and dynamic bal (when appropriate); modalities: CP PRN. Frequency and duration: No further visits planned. OK for 2x/wk for 6 weeks based on schedule availability of patient. Potential to achieve rehab goals is good Pt being placed on hold for 30 days at this time and is going to attempt independence with HEP. If pt does not elect to resume PT within 30 days, this will serve as his D/C. Refer back in future if necessary. Progress with POC, as tolerated. Monitor home program. Assessment Pt confirmed via and Full Name. Pt reassessed this date by supervising PT with improvements noted in Left hip AROM and MMT compared to eval. Pt has made good progress towards all POC goals. Pt reported good understanding of all edu and updates to HEP made this date and is appropriate to attempt independence with HEP and symptom management at this time. Adult Risk Screening There are no spiritual/cultural practices/values/needs that are important to know Initial Fall Risk Screening: ALISSON has not fallen in the last 6 months. ALISSON has a fear of falling. She needs assistance with . Needs assistance walking in her home. She needs assistance in an unfamiliar setting. The patient is using an assistive device. Fall Risk Screening: Patient is identified as a fall risk. Care Plan: Low Risk: Environmental for all patients and low risk patients: Offer assistance as needed or requested, keep environment free of obstacles, keep floor clean and dry, keep room lighting, wheelchair brakes on, bed/ stretcher locked and in low position if applicable, non-slip footwear if applicable, walker/cane available if needed, side rails up if applicable and pre-emptive toileting. Pain Scale: On a scale of 0 to 10, the patient rates the pain at 0. Please identify location of pain: left buttock. Insurance Insurance reviewed Visit number: [id number] POC 09/12 supervising PT DT Medicare [employer] Medically necessary Onset Date: 2021 Medicare Certification Period: Beginnin2021 Endin2021 Subjective Patient reports:. Pt notes everything going well. Has some questions about her HEP and working in the garden. Patient identified by name and date of . Home program performing as directed: Yes. Precautions: Fall Risk: low follow posterior hip precautions (no hip flex past 90, no IR, no add) until further clarification received from MD (phone call placed 05/01/22). Objective Ortho LEFS: 16/80->67/80 L LE MMT deferred post-operatively Hip Flex: 4+/5 Hip ABD seated: 4+/5 Hip ADD Seated: 4+/5 Hip ER/IR: 4-/5 Knee Flex: 4+/5 Knee Ext: 4+/5 . Outcome Measures Lower Extremity Functional Scale score: 67/80 Treatment Time in clinic started at 0930 Time in clinic ended at 1000 Total time in clinic is 30 minutes. Total timed code time is 25 minutes. Therapeutic exercise (90290): timed minutes 25, units 2 . posterior hip precautions (no hip flex past 90, no IR, no add Nustep 5' limited at 90 degrees d/t precautions Pt re-assessed for updated POC, updated/reviewed HEP, and discussed continued symptom management x 20' Not 06/01/2022 Slant board 1' x 2 (N) SLS 30 x 2 (N) supine APs 2 x 10 supine QS 2 x 10 supine glute set 2 x 15 5 hold (P reps) Seated SLR 2 x 15 (P SLR 2 x 10 SAQ 2 x 10 Seated LAQ 2 x 10 Seated HS curls Honeydew 2 x 10 Standing hip ABD 2 x 10 airex Standing heel raises 2 x 10 airex Standing ext 2 x 10 airex Step ups 4 step 2 x 10 Hurdles (A) BOSU Lunges (A) . Manual Therapy (64046):. Declined d/t previous thigh injury and tenderness (X). Provided today:. Access Code: [email or web address] URL: [email or web address] the [email or web address] Date: (more content not included)... Normal [facility] Therapy Re-eval Noteon 06-01 Therapy Re-eval Note Therapy Diagnosis Assessed 1. Left hip pain (719.45) (M25.552) 2. Unilateral primary osteoarthritis, left hip (715.15) (M16.12) Plan Goals: Goals set and discussed today. Pt will demonstrate independence and compliance with HEP and self management, by week 2, goal met Activity Limitation: LEFS 26/80 or better for improved QOL, by week 6, goal met Balance: SLS L x 10 for decreased fall risk, by week 6, goal met Gait/Locomotion: Amb I without AD with normalized gait pattern for return to PLOF, by week 6, goal partially met Pain: Decrease max pain to less than or equal to 5/10 for improved QOL. , by week 6, goal met Strength: L LE MMT 4/5 throughout or better for reciprocal stair climbing, by week 6, goal met Planned interventions include: cryotherapy, education/instruction, gait training, home program, manual therapy, neuromuscular re-education, self care/home management, therapeutic activities, therapeutic exercises, vasopneumatic device and vasopneumatic device w/ cold . follow posterior hip precautions until clarified by MD; gait training - normalize gait with LRAD, stair climbing; transfer training: AD management with STS, bed mobility; ther ex: LE strengthening/flexibility within hip precautions; neuro re-ed: static and dynamic bal (when appropriate); modalities: CP PRN. Frequency and duration: No further visits planned. OK for 2x/wk for 6 weeks based on schedule availability of patient. Potential to achieve rehab goals is good Pt being placed on hold for 30 days at this time and is going to attempt independence with HEP. If pt does not elect to resume PT within 30 days, this will serve as his D/C. Refer back in future if necessary. Progress with POC, as tolerated. Monitor home program. Assessment Pt confirmed via and Full Name. Pt reassessed this date by supervising PT with improvements noted in Left hip AROM and MMT compared to eval. Pt has made good progress towards all POC goals. Pt reported good understanding of all edu and updates to HEP made this date and is appropriate to attempt independence with HEP and symptom management at this time. Adult Risk Screening There are no spiritual/cultural practices/values/needs that are important to know Initial Fall Risk Screening: ALISSON has not fallen in the last 6 months. ALISSON has a fear of falling. She needs assistance with . Needs assistance walking in her home. She needs assistance in an unfamiliar setting. The patient is using an assistive device. Fall Risk Screening: Patient is identified as a fall risk. Care Plan: Low Risk: Environmental for all patients and low risk patients: Offer assistance as needed or requested, keep environment free of obstacles, keep floor clean and dry, keep room lighting, wheelchair brakes on, bed/ stretcher locked and in low position if applicable, non-slip footwear if applicable, walker/cane available if needed, side rails up if applicable and pre-emptive toileting. Pain Scale: On a scale of 0 to 10, the patient rates the pain at 0. Please identify location of pain: left buttock. Insurance Insurance reviewed Visit number: 11 POC 09/12 supervising PT DT Medicare [employer] Medically necessary Onset Date: 2021 Medicare Certification Period: Beginnin2021 Endin2021 Subjective Patient reports:. Pt notes everything going well. Has some questions about her HEP and working in the garden. Patient identified by name and date of . Home program performing as directed: Yes. Precautions: Fall Risk: low follow posterior hip precautions (no hip flex past 90, no IR, no add) until further clarification received from (phone call placed 05/01/22). Objective Ortho LEFS: 16/80->67/80 L LE MMT deferred post-operatively Hip Flex: 4+/5 Hip ABD seated: 4+/5 Hip ADD Seated: 4+/5 Hip ER/IR: 4-/5 Knee Flex: 4+/5 Knee Ext: 4+/5 . Outcome Measures Lower Extremity Functional Scale score: 67/80 Treatment Time in clinic started at 0930 Time in clinic ended at 1000 Total time in clinic is 30 minutes. Total timed code time is 25 minutes. Therapeutic exercise (53583): timed minutes 25, units 2 . posterior hip precautions (no hip flex past 90, no IR, no add Nustep 5' limited at 90 degrees d/t precautions Pt re-assessed for updated POC, updated/reviewed HEP, and discussed continued symptom management x 20' Not 06/01/2022 Slant board 1' x 2 (N) SLS 30 x 2 (N) supine APs 2 x 10 supine QS 2 x 10 supine glute set 2 x 15 5 hold (P reps) Seated SLR 2 x 15 (P SLR 2 x 10 SAQ 2 x 10 Seated LAQ 2 x 10 Seated HS curls Honeydew 2 x 10 Standing hip ABD 2 x 10 airex Standing heel raises 2 x 10 airex Standing ext 2 x 10 airex Step ups 4 step 2 x 10 Hurdles (A) BOSU Lunges (A) . Manual Therapy (33552):. Declined d/t previous thigh injury and tenderness (X). Provided today:. Access Code: [email or web address] URL: [email or web address] (more content not included)... Normal [employer] PT Progress Noteon 2 PT Progress Note Therapy Diagnosis Assessed Left hip pain (719.45) (M25.552) Unilateral primary osteoarthritis, left hip (715.15) (M16.12) Plan Goals: Goals set and discussed today. Pt will demonstrate independence and compliance with HEP and self management, by week 2 Activity Limitation: LEFS 26/80 or better for improved QOL, by week 6 Balance: SLS L x 10 for decreased fall risk, by week 6 Gait/Locomotion: Amb I without AD with normalized gait pattern for return to PLOF, by week 6 Pain: Decrease max pain to less than or equal to 5/10 for improved QOL. , by week 6 Strength: L LE MMT 4/5 throughout or better for reciprocal stair climbing, by week 6 Planned interventions include: cryotherapy, education/instruction, gait training, home program, manual therapy, neuromuscular re-education, self care/home management, therapeutic activities, therapeutic exercises, vasopneumatic device and vasopneumatic device w/ cold . follow posterior hip precautions until clarified by MD; gait training - normalize gait with LRAD, stair climbing; transfer training: AD management with STS, bed mobility; ther ex: LE strengthening/flexibility within hip precautions; neuro re-ed: static and dynamic bal (when appropriate); modalities: CP PRN. Frequency and duration: 3 time(s) a week, for 4 weeks, for 12 visits . OK for 2x/wk for 6 weeks based on schedule availability of patient. Potential to achieve rehab goals is good Will continue with LE strength progression as able. Progress with POC, as tolerated. Assessment Continues to fatigue quickly with standing PRE's on the airex Mildly antalgic gait observed in the clinic this date. Improved eccentric control with with step ups. Adult Risk Screening There are no spiritual/cultural practices/values/needs that are important to know Initial Fall Risk Screening: ALISSON has not fallen in the last 6 months. ALISSON has a fear of falling. She needs assistance with . Needs assistance walking in her home. She needs assistance in an unfamiliar setting. The patient is using an assistive device. Fall Risk Screening: Patient is identified as a fall risk. Care Plan: Low Risk: Environmental for all patients and low risk patients: Offer assistance as needed or requested, keep environment free of obstacles, keep floor clean and dry, keep room lighting, wheelchair brakes on, bed/ stretcher locked and in low position if applicable, non-slip footwear if applicable, walker/cane available if needed, side rails up if applicable and pre-emptive toileting. Please identify location of pain: left buttock. Insurance Insurance reviewed Visit number: 10 POC 12/13 supervising PT QUYNH Medicare [employer] Medically necessary Onset Date: 2021 Medicare Certification Period: Beginnin2021 Endin2021 Subjective Patient reports:. Patient reports 0/10 currently. States that she had F/U with MD and everything looks good. Notes that Patient identified by name and date of . Home program performing as directed: Yes. Precautions: Fall Risk: low follow posterior hip precautions (no hip flex past 90, no IR, no add) until further clarification received from (phone call placed 05/01/22). Treatment Time in clinic started at 10:00 Time in clinic ended at 10:43 Total time in clinic is 43 minutes. Total timed code time is 42 minutes. Therapeutic exercise (33021): timed minutes 42, units 3 . posterior hip precautions (no hip flex past 90, no IR, no add Nustep 5' limited at 90 degrees d/t precautions Slant board 1' x 2 (N) SLS 30 x 2 (N) supine APs 2 x 10 supine QS 2 x 10 supine glute set 2 x 15 5 hold (P reps) Seated SLR 2 x 15 (P SLR 2 x 10 SAQ 2 x 10 Seated LAQ 2 x 10 Seated HS curls Honeydew 2 x 10 Standing hip ABD 2 x 10 airex Standing heel raises 2 x 10 airex Standing ext 2 x 10 airex Step ups 4 step 2 x 10 Hurdles (A) BOSU Lunges (A) . Manual Therapy (96562):. Declined d/t previous thigh injury and tenderness (X). Provided today:. Seated HS curl with orange band. 'Scores and Scales' Signatures Electronically signed by : Dalila Avery, [employer]; May 29 2022 1:08PM EST (Author) Electronically signed by : June Chavarria, PT; May 29 2022 3:44PM EST Normal [employer] PT Progress Noteon 2 PT Progress Note Therapy Diagnosis Assessed Left hip pain (719.45) (M25.552) Unilateral primary osteoarthritis, left hip (715.15) (M16.12) Plan Goals: Goals set and discussed today. Pt will demonstrate independence and compliance with HEP and self management, by week 2 Activity Limitation: LEFS 26/80 or better for improved QOL, by week 6 Balance: SLS L x 10 for decreased fall risk, by week 6 Gait/Locomotion: Amb I without AD with normalized gait pattern for return to PLOF, by week 6 Pain: Decrease max pain to less than or equal to 5/10 for improved QOL. , by week 6 Strength: L LE MMT 4/5 throughout or better for reciprocal stair climbing, by week 6 Planned interventions include: cryotherapy, education/instruction, gait training, home program, manual therapy, neuromuscular re-education, self care/home management, therapeutic activities, therapeutic exercises, vasopneumatic device and vasopneumatic device w/ cold . follow posterior hip precautions until clarified by MD; gait training - normalize gait with LRAD, stair climbing; transfer training: AD management with STS, bed mobility; ther ex: LE strengthening/flexibility within hip precautions; neuro re-ed: static and dynamic bal (when appropriate); modalities: CP PRN. Frequency and duration: 3 time(s) a week, for 4 weeks, for 12 visits . OK for 2x/wk for 6 weeks based on schedule availability of patient. Potential to achieve rehab goals is good Continue to progress standing PRE's and balance as pain allows. Progress with POC, as tolerated. Assessment Needs to use B UE assist with SLS on the L. Mild exacerbation of sx with SLS. Mildly antalgic gait observed in the clinic. Adult Risk Screening There are no spiritual/cultural practices/values/needs that are important to know Initial Fall Risk Screening: ALISSON has not fallen in the last 6 months. ALISSON has a fear of falling. She needs assistance with . Needs assistance walking in her home. She needs assistance in an unfamiliar setting. The patient is using an assistive device. Fall Risk Screening: Patient is identified as a fall risk. Care Plan: Low Risk: Environmental for all patients and low risk patients: Offer assistance as needed or requested, keep environment free of obstacles, keep floor clean and dry, keep room lighting, wheelchair brakes on, bed/ stretcher locked and in low position if applicable, non-slip footwear if applicable, walker/cane available if needed, side rails up if applicable and pre-emptive toileting. Please identify location of pain: left buttock. Insurance Insurance reviewed Visit number: 9 POC 12/13 supervising PT QUYNH Medicare [employer] Medically necessary Onset Date: 2021 Medicare Certification Period: Beginnin2021 Endin2021 Subjective Patient reports:. Patient reports 11/10 currently. Notes that she was out in the yard working and is more sore. Notes that she was pulling around buckets in her gorilla yard cart and felt it last night. Has F/U with MD this week. Patient identified by name and date of . Home program performing as directed: Yes. Precautions: Fall Risk: low follow posterior hip precautions (no hip flex past 90, no IR, no add) until further clarification received from (phone call placed 05/01/22). Treatment Time in clinic started at 10:00 Time in clinic ended at 10:42 Total time in clinic is 40 minutes. Total timed code time is 42 minutes. Therapeutic exercise (24242): timed minutes 42, units 3 . posterior hip precautions (no hip flex past 90, no IR, no add Nustep 5' limited at 90 degrees d/t precautions Slant board 1' x 2 (N) SLS 30 x 2 (N) supine APs 2 x 10 supine QS 2 x 10 supine glute set 2 x 15 5 hold (P reps) Seated SLR 2 x 15 (P reps) SLR 2 x 10 SAQ 2 x 10 Seated LAQ 2 x 10 Seated HS curls Honeydew 2 x 10 Standing hip ABD 2 x 10 airex Standing heel raises 2 x 10 airex Standing ext 2 x 10 airex Step ups 4 step 2 x 10 Hurdles (A) BOSU Lunges (A) . Manual Therapy (33410):. Declined d/t previous thigh injury and tenderness (X). Provided today:. Seated HS curl with orange band. 'Scores and Scales' Signatures Electronically signed by : Dalila Avery [employer]; May 27 2022 10:58AM EST (Author) Electronically signed by : June Chavarria, PT; May 29 2022 3:44PM EST Normal [employer] PT Progress Noteon PT Progress Note Therapy Diagnosis Assessed Left hip pain (719.45) (M25.552) Unilateral primary osteoarthritis, left hip (715.15) (M16.12) Plan Goals: Goals set and discussed today. Pt will demonstrate independence and compliance with HEP and self management, by week 2 Activity Limitation: LEFS 26/80 or better for improved QOL, by week 6 Balance: SLS L x 10 for decreased fall risk, by week 6 Gait/Locomotion: Amb I without AD with normalized gait pattern for return to PLOF, by week 6 Pain: Decrease max pain to less than or equal to 5/10 for improved QOL. , by week 6 Strength: L LE MMT 4/5 throughout or better for reciprocal stair climbing, by week 6 Planned interventions include: cryotherapy, education/instruction, gait training, home program, manual therapy, neuromuscular re-education, self care/home management, therapeutic activities, therapeutic exercises, vasopneumatic device and vasopneumatic device w/ cold . follow posterior hip precautions until clarified by MD; gait training - normalize gait with LRAD, stair climbing; transfer training: AD management with STS, bed mobility; ther ex: LE strengthening/flexibility within hip precautions; neuro re-ed: static and dynamic bal (when appropriate); modalities: CP PRN. Frequency and duration: 3 time(s) a week, for 4 weeks, for 12 visits . OK for 2x/wk for 6 weeks based on schedule availability of patient. Potential to achieve rehab goals is good Continue to progress to more challenging standing PRE's. Progress with POC, as tolerated. Assessment Continues to fatigue with standing PRE's in the clinic. Minimally antalgic gait observed in the clinic. Will continue to progress to more advanced PRE's next visit. Adult Risk Screening There are no spiritual/cultural practices/values/needs that are important to know Initial Fall Risk Screening: ALISSON has not fallen in the last 6 months. ALISSON has a fear of falling. She needs assistance with . Needs assistance walking in her home. She needs assistance in an unfamiliar setting. The patient is using an assistive device. Fall Risk Screening: Patient is identified as a fall risk. Care Plan: Low Risk: Environmental for all patients and low risk patients: Offer assistance as needed or requested, keep environment free of obstacles, keep floor clean and dry, keep room lighting, wheelchair brakes on, bed/ stretcher locked and in low position if applicable, non-slip footwear if applicable, walker/cane available if needed, side rails up if applicable and pre-emptive toileting. Please identify location of pain: left buttock. Insurance Insurance reviewed Visit number: 8 POC 12/13 supervising PT DT Medicare [employer] Medically necessary Onset Date: 2021 Medicare Certification Period: Beginnin2021 Endin2021 Subjective Patient reports:. Patient reports 0/10 currently. Patient reports that she is not dizzy anymore since she figured out that she needs to eat. States that she wants to get out and be able to walk and go shopping soon. Patient identified by name and date of . Home program performing as directed: Yes. Precautions: Fall Risk: low follow posterior hip precautions (no hip flex past 90, no IR, no add) until further clarification received from MD (phone call placed 05/01/22). Treatment Time in clinic started at 9:15 Time in clinic ended at 10:00 Total time in clinic is 45 minutes. Total timed code time is 44 minutes. Therapeutic exercise (83110): timed minutes 44, units 3 . posterior hip precautions (no hip flex past 90, no IR, no add Nustep 5' limited at 90 degrees d/t precautions supine APs 2 x 10 supine QS 2 x 10 supine glute set 2 x 15 5 hold (P reps) Seated SLR 2 x 15 (P reps) SLR 2 x 10 SAQ 2 x 10 Seated LAQ 2 x 10 Seated HS curls Honeydew 2 x 10 Standing hip ABD 2 x 10 airex Standing heel raises 2 x 10 P to airex Standing ext 2 x 10 P to airex Step ups 4 step 2 x 10 Hurdles (A) FAUSTINOU Lunges (A) . Manual Therapy (15242):. Declined d/t previous thigh injury and tenderness (X). Provided today:. Seated HS curl with orange band. 'Scores and Scales' Signatures Electronically signed by : Dalila Avery [employer]; May 25 2022 12:37PM EST (Author) Electronically signed by : June Chavarria, PT; May 29 2022 3:44PM EST Normal [employer] PT Progress Noteon PT Progress Note Therapy Diagnosis Assessed Left hip pain (719.45) (M25.552) Unilateral primary osteoarthritis, left hip (715.15) (M16.12) Plan Goals: Goals set and discussed today. Pt will demonstrate independence and compliance with HEP and self management, by week 2 Activity Limitation: LEFS 26/80 or better for improved QOL, by week 6 Balance: SLS L x 10 for decreased fall risk, by week 6 Gait/Locomotion: Amb I without AD with normalized gait pattern for return to PLOF, by week 6 Pain: Decrease max pain to less than or equal to 5/10 for improved QOL. , by week 6 Strength: L LE MMT 4/5 throughout or better for reciprocal stair climbing, by week 6 Planned interventions include: cryotherapy, education/instruction, gait training, home program, manual therapy, neuromuscular re-education, self care/home management, therapeutic activities, therapeutic exercises, vasopneumatic device and vasopneumatic device w/ cold . follow posterior hip precautions until clarified by MD; gait training - normalize gait with LRAD, stair climbing; transfer training: AD management with STS, bed mobility; ther ex: LE strengthening/flexibility within hip precautions; neuro re-ed: static and dynamic bal (when appropriate); modalities: CP PRN. Frequency and duration: 3 time(s) a week, for 4 weeks, for 12 visits . OK for 2x/wk for 6 weeks based on schedule availability of patient. Potential to achieve rehab goals is good Progress ther ex and ROM for improved functional mobility and strength with home and self care tasks. Progress with POC, as tolerated. Assessment Able to progress to Airex this date with standing PRE's. Patient was more fatigued today d/t the progression. Declined STW this date d/t previous injury from years ago and having sensitivity to the thigh. Adult Risk Screening There are no spiritual/cultural practices/values/needs that are important to know Initial Fall Risk Screening: ALISSON has not fallen in the last 6 months. ALISSON has a fear of falling. She needs assistance with . Needs assistance walking in her home. She needs assistance in an unfamiliar setting. The patient is using an assistive device. Fall Risk Screening: Patient is identified as a fall risk. Care Plan: Low Risk: Environmental for all patients and low risk patients: Offer assistance as needed or requested, keep environment free of obstacles, keep floor clean and dry, keep room lighting, wheelchair brakes on, bed/ stretcher locked and in low position if applicable, non-slip footwear if applicable, walker/cane available if needed, side rails up if applicable and pre-emptive toileting. Please identify location of pain: left buttock. Insurance Insurance reviewed Visit number: 7 POC 12/13 supervising PT QUYNH Medicare [employer] Medically necessary Onset Date: 2021 Medicare Certification Period: Beginnin2021 Endin2021 Subjective Patient reports:. Patient reports that she has no increased symptoms in the hip this date. Has been walking around home w/out AD and uses cane when in community. Phoned MD regarding symptoms and they are going to wait until F/U visit to have it looked at unless other symptoms arise. Patient identified by name and date of . Home program performing as directed: Yes. Precautions: Fall Risk: low follow posterior hip precautions (no hip flex past 90, no IR, no add) until further clarification received from MD (phone call placed 05/01/22). Treatment Time in clinic started at 9:15 Time in clinic ended at 10:00 Total time in clinic is 45 minutes. Total timed code time is 43 minutes. Therapeutic exercise (23100): timed minutes 43, units 3 . posterior hip precautions (no hip flex past 90, no IR, no add Nustep 5' limited at 90 degrees d/t precautions supine APs 2 x 10 supine QS 2 x 10 supine glute set 2 x 10 5 hold Seated SLR 2 x 10 (N) SLR 2 x 10 SAQ 2 x 10 Seated LAQ 2 x 10 Seated HS curls Honeydew 2 x 10 (N) Standing hip ABD 2 x 10 (P to airex) Standing heel raises 2 x 10 (P to airex) Standing ext 2 x 10 (P to airex) Step ups 4 step 2 x 10 . Manual Therapy (57858):. Declined d/t previous thigh injury and tenderness (X). Provided today:. Seated HS curl with orange band. 'Scores and Scales' Signatures Electronically signed by : Dalila Avery [employer]; May 22 2022 1:15PM EST (Author) Electronically signed by : June Chavarria, PT; May 29 2022 3:44PM EST Normal [employer] PT Progress Noteon 2 PT Progress Note Therapy Diagnosis Assessed Left hip pain (719.45) (M25.552) Unilateral primary osteoarthritis, left hip (715.15) (M16.12) Plan Goals: Goals set and discussed today. Pt will demonstrate independence and compliance with HEP and self management, by week 2 Activity Limitation: LEFS 26/80 or better for improved QOL, by week 6 Balance: SLS L x 10 for decreased fall risk, by week 6 Gait/Locomotion: Amb I without AD with normalized gait pattern for return to PLOF, by week 6 Pain: Decrease max pain to less than or equal to 5/10 for improved QOL. , by week 6 Strength: L LE MMT 4/5 throughout or better for reciprocal stair climbing, by week 6 Planned interventions include: cryotherapy, education/instruction, gait training, home program, manual therapy, neuromuscular re-education, self care/home management, therapeutic activities, therapeutic exercises, vasopneumatic device and vasopneumatic device w/ cold . follow posterior hip precautions until clarified by MD; gait training - normalize gait with LRAD, stair climbing; transfer training: AD management with STS, bed mobility; ther ex: LE strengthening/flexibility within hip precautions; neuro re-ed: static and dynamic bal (when appropriate); modalities: CP PRN. Frequency and duration: 3 time(s) a week, for 4 weeks, for 12 visits . OK for 2x/wk for 6 weeks based on schedule availability of patient. Potential to achieve rehab goals is good Progress ther ex and ROM for improved functional mobility and strength with home and self care tasks. Progress with POC, as tolerated. Assessment Improved gait that is still mildly antalgic with no AD. Added seated HS curl this date resisted with orange band. Mild pain with SLR in anterior hip. Adult Risk Screening There are no spiritual/cultural practices/values/needs that are important to know Initial Fall Risk Screening: ALISSON has not fallen in the last 6 months. ALISSON has a fear of falling. She needs assistance with . Needs assistance walking in her home. She needs assistance in an unfamiliar setting. The patient is using an assistive device. Fall Risk Screening: Patient is identified as a fall risk. Care Plan: Low Risk: Environmental for all patients and low risk patients: Offer assistance as needed or requested, keep environment free of obstacles, keep floor clean and dry, keep room lighting, wheelchair brakes on, bed/ stretcher locked and in low position if applicable, non-slip footwear if applicable, walker/cane available if needed, side rails up if applicable and pre-emptive toileting. Please identify location of pain: left buttock. Insurance Insurance reviewed Visit number: 6 POC 12/13 supervising PT DT Medicare [employer] Medically necessary Onset Date: 2021 Medicare Certification Period: Beginnin2021 Endin2021 Subjective Patient reports:. Patient did not phone MD yet d/t incision but said she will. Did not put butterfly band aid over incision yet either. Patient identified by name and date of . Home program performing as directed: Yes. Precautions: Fall Risk: low follow posterior hip precautions (no hip flex past 90, no IR, no add) until further clarification received from MD (phone call placed 05/01/22). Treatment Time in clinic started at 10:00 Time in clinic ended at 10:45 Total time in clinic is 45 minutes. Total timed code time is 43 minutes. Therapeutic exercise (70998): timed minutes 43, units 3 . posterior hip precautions (no hip flex past 90, no IR, no add Nustep 5' limited at 90 degrees d/t precautions supine APs 2 x 10 supine QS 2 x 10 supine glute set 2 x 10 5 hold SLR 2 x 10 SAQ 2 x 10 Seated LAQ 2 x 10 Seated HS curls Honeydew 2 x 10 (N) Standing hip ABD 2 x 10 Standing heel raises 2 x 10 Standing ext 2 x 10 Step ups 4 step 2 x 10 . Provided today:. Seated HS curl with orange band. 'Scores and Scales' Signatures Electronically signed by : Dalila Avery [employer]; May 20 2022 11:02AM EST (Author) Electronically signed by : June Chavarria, PT; May 29 2022 3:44PM EST Normal [facility] PT Progress Noteon PT Progress Note Therapy Diagnosis Assessed Left hip pain (719.45) (M25.552) Unilateral primary osteoarthritis, left hip (715.15) (M16.12) Plan Goals: Goals set and discussed today. Pt will demonstrate independence and compliance with HEP and self management, by week 2 Activity Limitation: LEFS 26/80 or better for improved QOL, by week 6 Balance: SLS L x 10 for decreased fall risk, by week 6 Gait/Locomotion: Amb I without AD with normalized gait pattern for return to PLOF, by week 6 Pain: Decrease max pain to less than or equal to 5/10 for improved QOL. , by week 6 Strength: L LE MMT 4/5 throughout or better for reciprocal stair climbing, by week 6 Planned interventions include: cryotherapy, education/instruction, gait training, home program, manual therapy, neuromuscular re-education, self care/home management, therapeutic activities, therapeutic exercises, vasopneumatic device and vasopneumatic device w/ cold . follow posterior hip precautions until clarified by MD; gait training - normalize gait with LRAD, stair climbing; transfer training: AD management with STS, bed mobility; ther ex: LE strengthening/flexibility within hip precautions; neuro re-ed: static and dynamic bal (when appropriate); modalities: CP PRN. Frequency and duration: 3 time(s) a week, for 4 weeks, for 12 visits . OK for 2x/wk for 6 weeks based on schedule availability of patient. Potential to achieve rehab goals is good Continue to progress strength and standing PRE's for improved gait. Continue to progress as able while following Posterior THR precautions. Progress with POC, as tolerated. Assessment Examined patients incision and the area looks as though it was stapled offset and is pulling away. Instructed patient to use butterfly band aid and to phone MD. Improved gait observed with no use of AD in clinic. Adult Risk Screening There are no spiritual/cultural practices/values/needs that are important to know Initial Fall Risk Screening: ALISSON has not fallen in the last 6 months. ALISSON has a fear of falling. She needs assistance with . Needs assistance walking in her home. She needs assistance in an unfamiliar setting. The patient is using an assistive device. Fall Risk Screening: Patient is identified as a fall risk. Care Plan: Low Risk: Environmental for all patients and low risk patients: Offer assistance as needed or requested, keep environment free of obstacles, keep floor clean and dry, keep room lighting, wheelchair brakes on, bed/ stretcher locked and in low position if applicable, non-slip footwear if applicable, walker/cane available if needed, side rails up if applicable and pre-emptive toileting. Please identify location of pain: left buttock. Insurance Insurance reviewed Visit number: 4 POC 12/13 supervising PT DT Medicare [place] Medically necessary Onset Date: 2021 Medicare Certification Period: Beginnin2021 Endin2021 Subjective Patient reports:. Patient reports that has been having pain along the incision since getting shyla out last week. States that she gets a Pin Prickling feeling in the incision. Notes that she has been ambulating again at home with cane and sometimes without. Patient identified by name and date of . Home program performing as directed: Yes. Precautions: Fall Risk: low follow posterior hip precautions (no hip flex past 90, no IR, no add) until further clarification received from (phone call placed 05/01/22). Treatment Time in clinic started at 10:00 Time in clinic ended at 10:46 Total time in clinic is 46 minutes. Total timed code time is 44 minutes. Therapeutic exercise (51291): timed minutes 44, units 3 . posterior hip precautions (no hip flex past 90, no IR, no add Nustep 5' limited at 90 degrees d/t precautions supine APs 2 x 10 supine QS 2 x 10 supine glute set 2 x 10 5 hold SLR x 10 SAQ 2 x 10 Seated LAQ 2 x 10 Standing hip ABD 2 x 10 Standing heel raises 2 x 10 Standing ext 2 x 10 Step ups 4 step 2 x 10 (N) . 'Scores and Scales' Signatures Electronically signed by : Dalila Avery, [employer] SAL[employer]; May 18 2022 1:10PM EST (Author) Electronically signed by : June Chavarria, PT; May 29 2022 3:40PM EST Normal [employer] PT Progress Noteon PT Progress Note Therapy Diagnosis Assessed Left hip pain (719.45) (M25.552) Right hip pain (719.45) (M25.551) Unilateral primary osteoarthritis, left hip (715.15) (M16.12) Plan Goals: Goals set and discussed today. Pt will demonstrate independence and compliance with HEP and self management, by week 2 Activity Limitation: LEFS 26/80 or better for improved QOL, by week 6 Balance: SLS L x 10 for decreased fall risk, by week 6 Gait/Locomotion: Amb I without AD with normalized gait pattern for return to PLOF, by week 6 Pain: Decrease max pain to less than or equal to 5/10 for improved QOL. , by week 6 Strength: L LE MMT 4/5 throughout or better for reciprocal stair climbing, by week 6 Planned interventions include: cryotherapy, education/instruction, gait training, home program, manual therapy, neuromuscular re-education, self care/home management, therapeutic activities, therapeutic exercises, vasopneumatic device and vasopneumatic device w/ cold . follow posterior hip precautions until clarified by MD; gait training - normalize gait with LRAD, stair climbing; transfer training: AD management with STS, bed mobility; ther ex: LE strengthening/flexibility within hip precautions; neuro re-ed: static and dynamic bal (when appropriate); modalities: CP PRN. Frequency and duration: 3 time(s) a week, for 4 weeks, for 12 visits . OK for 2x/wk for 6 weeks based on schedule availability of patient. Potential to achieve rehab goals is good Continue to progress strength and standing PRE's for improved gait. Continue to progress as able while following Posterior THR precautions. Progress with POC, as tolerated. Assessment Arrived to PT using standard cane instead of walker. Gait is mildly antalgic with decreased verna. Patient was challenged by progression to SLR this date. Adult Risk Screening There are no spiritual/cultural practices/values/needs that are important to know Initial Fall Risk Screening: ALISSON has not fallen in the last 6 months. ALISSON has a fear of falling. She needs assistance with . Needs assistance walking in her home. She needs assistance in an unfamiliar setting. The patient is using an assistive device. Fall Risk Screening: Patient is identified as a fall risk. Care Plan: Low Risk: Environmental for all patients and low risk patients: Offer assistance as needed or requested, keep environment free of obstacles, keep floor clean and dry, keep room lighting, wheelchair brakes on, bed/ stretcher locked and in low position if applicable, non-slip footwear if applicable, walker/cane available if needed, side rails up if applicable and pre-emptive toileting. Please identify location of pain: left buttock. Insurance Insurance reviewed Visit number: 4 POC 12/13 supervising PT QUYNH Medicare [employer] Medically necessary Onset Date: 2021 Medicare Certification Period: Beginnin2021 Endin2021 Subjective Patient reports:. Patient reports she is having 1/10 pain currently. Notes that she has not been using her walker at home but is using her cane. States that he has found a connection with not eating and being dizzy. Patient had shyla removed on 05/13/22 and she goes back at end of month for F/u w/ x-ray. Is going to drive for the first time after today. Patient identified by name and date of . Home program performing as directed: Yes. Precautions: Fall Risk: low follow posterior hip precautions (no hip flex past 90, no IR, no add) until further clarification received from (phone call placed 05/01/22). Treatment Time in clinic started at 10:00 Time in clinic ended at 10:46 Total time in clinic is 46 minutes. Total timed code time is 44 minutes. Therapeutic exercise (52397): timed minutes 44, units 3 . posterior hip precautions (no hip flex past 90, no IR, no add Nustep 5' limited at 90 degrees d/t precautions supine APs 2 x 10 supine QS 2 x 10 supine glute set 2 x 10 5 hold SLR x 10 (N) SAQ 2 x 10 Seated LAQ 2 x 10 Standing hip ABD 2 x 10 Standing heel raises 2 x 10 Standing ext 2 x 10 Step ups 4 step 2 x 10 (A) . 'Scores and Scales' Signatures Electronically signed by : Dalila Avrey PTA; May 15 2022 10:56AM EST (Author) Electronically signed by : June Chavarria PT; May 29 2022 3:39PM EST Normal [facility] [employer] Decalcification bone/plaqueo n 04-29-2022 Decalcification bone/plaque OPERATION: Left total hip arthroplasty PRE-OP DIAGNOSIS: Unilateral primary osteoarthritis left hip TISSUE SUBMITTED: Left femur head Bone and tissue of left hip, total hip resection: Severe degenerative joint disease. AM:dwain 05/05/2022 Slides are reviewed. Received is one container labeled with the patient's name and designated left femoral head. The specimen consists of a ojeda femoral head measuring 5 x 4.8 x 4.5 cm. The articular surface displays prominent osteophyte formation, eburnation and bone erosion. Also present in the specimen container are multiple irregular fragments of indurated soft tissue and bone fragments measuring in aggregate 7 x 5.5 x 2 cm. Rn First Assist sections are submitted in two cassettes as follows: 1 - soft tissue, 2 - bone after decalcification. / AM:dwain 04/30/2022 TC:5 CPT: 30945, 89683 Signed (signature on file) Dr. Barrett Blevins, DO 05/05/22 1213 Normal [facility] Comment on above: Performed By: #### P DEC #### [facility] [address] [place], [place] [address]all karen. [place], [place], [id number] Albumin, Serumon 04-03-2022 Albumin BCP dye [Mass/Vol] 4.5 g/dL 3.4 - 5.0 [facility] Work Phone: Complete Blood Count + Diffe rentialon 04-03-2022 Basophils/100 WBC (Bld) 1.2 % 0.0 - 2.0 [facility] Work Phone: Erythrocyte distribution width (RBC) [Ratio] 13.9 % See Below [facility] Work Phone: Comment on above: Reference Range: 11. 5 - 14.5 Hematocrit (Bld) [Volume fraction] 41.4 % See Below [facility] Work Phone: Comment on above: Reference Range: 36. 0 - 46.0 Hemoglobin (Bld) [Mass/Vol] 13.7 g/dL See Below [facility] dorothy Razo Work Phone: Comment on above: Reference Range: 12. 0 - 16.0 Lymphocytes/100 WBC (Bld) 31.0 % See Below [facility] [place] Work Phone: Comment on above: Reference Range: 13. 0 - 44.0 MCHC (RBC) [Mass/Vol] 33.0 g/dL See Below [facility] [place] dorothy Razo Work Phone: [phone] Comment on above: Reference Range: 32. 0 - 36.0 MCV (RBC) [Entitic vol] 89 fL 80 - 100 [facility] [place] Work Phone: Monocytes/100 WBC (Bld) 7.6 % 2.0 - 10.0 [facility] [place] dorothy [place] Work Phone: [phone] Neutrophils/100 WBC (Bld) 59.3 % See Below [facility] Work Phone: Comment on above: Reference Range: 40. 0 - 80.0 Platelets (Bld) [#/Vol] 306 10*3/uL 150 - 450 [facility] [place] dorothy [place] Work Phone: [phone] RBC (Bld) [#/Vol] 4.68 {x10E12/L} See Below [facility] [place] dorothy [place] Work Phone: Comment on above: Reference Range: 4.0 0 - 5.20 WBC (Bld) [#/Vol] 8.7 10*3/uL 4.4 - 11.3 [facility] [place] Work Phone: Complete Blood Count + Differential 0.10 {x10E9/L} See Below [facility] Work Phone: Comment on above: Reference Range: 0.0 0 - 0.10 Reference Range: 0.0 0 - 0.40 Complete Blood Count + Differential 0.70 {x10E9/L} See Below [facility] Work Phone: Comment on above: Reference Range: 0.0 5 - 0.80 Complete Blood Count + Differential 2.70 {x10E9/L} See Below [facility] Work Phone: Comment on above: Reference Range: 0.8 0 - 3.00 Complete Blood Count + Differential 5.20 {x10E9/L} See Below [facility] Work Phone: Comment on above: Reference Range: 1.6 0 - 5.50 Percent differential counts (%) should be interpreted in the context of the absolute cell counts (cells/L). Complete Blood Count + Differential 0.9 % 0.0 - 6.0 [facility] Work Phone: Hemoglobin A1Con 04-03-2022 Glucose [Mass/Vol] 128 mg/dL [facility] Work Phone: HbA1c (Bld) [Mass fraction] 6.1 % Abnormal [facility] Work Phone: Comment on above: Diagnosis of Diabete s-Adults Non-Diabetic: < or = 5.6% Increased risk for developing diabetes: 5.7-6.4% Diagnostic of diabetes: > or = 6.5%. Monitoring of Diabetes Age (y) Therapeutic Goal (%) Adults: >18 <7.0 Pediatrics: 13-18 <7.5 7-12 <8.0 0- 6 7.5-8.5 [place] [employer] Diabetes Association. Diabetes Care 33(S1), Nov 2009. Laboratory - Chemistry and C hemistry - challengeon 04-03-2022 Anion gap [Moles/Vol] 13 mmol/L 10 - 20 [facility] Work Phone: Calcium [Mass/Vol] 9.3 mg/dL 8.6 - 10.3 [facility] Work Phone: Chloride [Moles/Vol] 109 mmol/L above high threshold 98 - 107 [facility] Work Phone: CO2 [Moles/Vol] 24 mmol/L 21 - 32 [facility] Work Phone: Creatinine [Mass/Vol] 0.62 mg/dL See Below [facility] Work Phone: Comment on above: Reference Range: 0.5 0 - 1.05 Glucose [Mass/Vol] 103 mg/dL above high threshold 74 - 99 [facility] Work Phone: Potassium [Moles/Vol] 4.0 mmol/L 3.5 - 5.3 [facility] Work Phone: Sodium [Moles/Vol] 142 mmol/L 136 - 145 [facility] Work Phone: Urea nitrogen [Mass/Vol] 19 mg/dL 6 - 23 [facility] Work Phone: No Panel Informationon 04-03 >90 >90 [facility] Work Phone: Comment on above: CALCULATIONS OF THONY MATED GFR ARE PERFORMED USING THE 2020 CKD-EPI STUDY REFIT EQUATION WITHOUT THE RACE VARIABLE FOR THE IDMS-TRACEABLE CREATININE METHODS.https://jasn.asnjournals.org/content//ASN. 8592628272 XR Hip Bilat 3-4 Views + Pel vison 03-14-2019 XR Hip Bilat 3-4 Views + Pelvis Exam Date/Time: 03/14/2019 14:00 EDT Reason for Exam: bilat hip pain Report STUDY: XR Hip Bilat 3-4 Views + Pelvis; 03/14/2019 2:00 pm INDICATION: bilat hip pain. COMPARISON: None. ACCESSION NUMBER(S): [id number] ORDERING CLINICIAN: Nicholas Ferreira TECHNIQUE: A single AP view of the pelvis as well as AP and lateral views each of the bilateral hips were obtained. FINDINGS: There is no acute fracture or dislocation identified. Moderate joint space narrowing and marginal osteophyte formation is seen in the hips bilaterally, greater on the left than on the right. Rcmy-qy-deiqzrjv hypertrophic degenerative changes are seen in the sacroiliac joints bilaterally. IMPRESSION: 1. No evidence of acute fracture or dislocation. 2. Degenerative changes, as described above. FINAL REPORT Dictated: 03/14/2019 2:42 pm Raphael Melgoza MD Signed (Electronic Signature): 03/14/2019 2:42 pm Signed by: Raphael Melgoza MD Technologist: [facility] Vital Signs Date Time Vital Sign Value Performing Clinician Facility 09-08-2023 15:10-0500 Body height 160 cm Papito Newbill PA-C Work Phone: [facility] 09-08-2023 15:10-0500 Body mass index (BMI) [Ratio] 27.81 kg/m2 Papito Newbill PA-C Work Phone: [facility] 09-08-2023 15:10-0500 Body temperature 98.91 [degF] Papito Newbill PA-C Work Phone: [facility] 09-08-2023 15:10-0500 Body weight 71.22 kg Papito Newbill PA-C Work Phone: [facility] 09-08-2023 15:10-0500 Diastolic blood pressure 58 mm[Hg] Papito Newbill PA-C Work Phone: [facility] 09-08-2023 15:10-0500 Heart rate 62 /min Papito Newbill PA-C Work Phone: [facility] 09-08-2023 15:10-0500 SaO2% (BldA) [Mass fraction] 93 % Papito Newbill PA-C Work Phone: [facility] 09-08-2023 15:10-0500 Systolic blood pressure 137 mm[Hg] Papito Newbill PA-C Work Phone: [facility] 05-13-2023 11:01-0400 Body height 160.02 cm Shaw French Work Phone: TA-Ommoesvocl-W[address]fi [facility] [address] Work Phone: 05-13-2023 11:01-0400 Body mass index (BMI) [Ratio] 27.14 kg/m2 Shaw French Work Phone: UR-Nmylpujwue-T[address] Work Phone: 05-13-2023 11:01-0400 Body surface area Derived from formula 1.73 m2 Shaw French Work Phone: PN-Boizkkbwvd-Krmmj [address] Work Phone: 05-13-2023 11:01-0400 Body weight 69.49 kg Shaw French Work Phone: NS-Wbuogagspp-Ygrfl nd [address] Work Phone: 05-13-2023 11:01-0400 Diastolic blood pressure 72 mm[Hg] Shaw French Work Phone: XC-Nuvmbxswdp-Vyadd [address] Work Phone: 05-13-2023 11:01-0400 Heart rate 88 /min Shaw French Work Phone: NZ-Tjhuiqjejn-Ofmqc [address] Work Phone: 05-13-2023 11:01-0400 SaO2% (BldA) [Mass fraction] 97 % Shaw French Work Phone: KL-Angzuncqko-Vryku [address] Work Phone: 05-13-2023 11:01-0400 Systolic blood pressure 150 mm[Hg] Shaw French Work Phone: EC-Ojzdjikncn-Osiew [address] Work Phone: 04-30-2023 18:35-0400 Diastolic blood pressure 67 mm[Hg] Shaw French Other Phone: [facility] 04-30-2023 18:35-0400 Heart rate 65 /min Shaw French Other Phone: [facility] 04-30-2023 18:35-0400 Respiratory rate 16 /min Shaw French Other Phone: [facility] 04-30-2023 18:35-0400 SaO2% (BldA) [Mass fraction] 97 % Shaw French Other Phone: [facility] 04-30-2023 18:35-0400 Systolic blood pressure 169 mm[Hg] Shaw French Other Phone: [facility] 04-30-2023 14:25-0400 Body height 160 cm Shaw French Other Phone: [facility] 04-30-2023 14:25-0400 Body temperature 97.52 [degF] Shaw French Other Phone: [facility] 04-30-2023 14:25-0400 Body weight 68.2 kg Shaw French Other Phone: [facility] Encounters Encounter Date Encounter Type Care Provider Facility Start: 08-15-2024 End: 08-15-2024 ambulatory [facility] Start: 09-08-2023 End: 09-08-2023 ambulatory [facility] Amb[facility] Start: 09-08-2023 End: 09-08-2023 Office outpatient new 30 minutes Papito Angelo SOTO Work Phone: [facility] Comment on above: Primary hypertension (Primary Dx); Arthritis; Encounter for lipid screening for cardiovascular disease Start: 05-20-[address] Jose Bey Fac ility:[id number] Start: 05-13-2023 Office outpatient ne w 45 minutes Shaw French Work Phone: SH-Hqquecxsvb-Yewqvmh [address] Work Phone: Start: 05-13-[address] Shaw French Facility:[id number] Start: 04-30-2023 End: 04-30-2023 Emergency department patient visit Sj Patrick [facility] Emergency 01 Start: 06-01-2022 ambulatory Ms. Nicholas Ferreira Facility:[id number] Start: 06-01-2022 Patient encounter procedure Nicholas Ferreira Work Phone: [facility] Work Phone: Start: 05-29-2022 ambulatory Ms. Nicholas Ferreira Facility:[id number] Start: 05-29-2022 Patient encounter procedure Nicholas Ferreira Work Phone: [facility] Work Phone: Start: 05-29-2022 PTFUADULT4, Provider : Dalila Avery, Status: Pen, Time: 10:00 AM Nicholas Ferreira Work Phone: [facility] Work Phone: Start: 05-27-2022 ambulatory Ms. Nicholas Ferreira Facility:[id number] Start: 05-27-2022 Patient encounter procedure Nicholas Ferreira Work Phone: [facility] Work Phone: Start: 05-27-2022 PTFUADULT4, Provider : Dalila Avery, Status: Pen, Time: 10:00 AM Nicholas Ferreira Work Phone: [facility] Work Phone: Start: 05-25-2022 ambulatory Ms. Nicholas Ferreira Facility:[id number] Start: 05-25-2022 Patient encounter procedure Nicholas Ferreira Work Phone: [facility] Work Phone: Start: 05-22-2022 amb[address] Mr. Yaron Wilsno ty:[id number] Start: 05-22-2022 PTFUADULT4, Provider : Dalila Avery, Status: Pen, Time: 9:15 AM Nicholas Veraer Work Phone: [facility] Work Phone: Start: 05-20-2022 Patient encounter procedure Nicholas Veraer Work Phone: [facility] Work Phone: Start: 05-20-2022 PTFUADULT4, Provider : Dalila Avery, Status: Pen, Time: 10:00 AM Nicholas Veraer Work Phone: [facility] Work Phone: Start: 05-18-2022 Patient encounter procedure Nicholas Veraer Work Phone: [facility] Work Phone: Start: 05-15-2022 Patient encounter procedure Nicholas Veraer Work Phone: [facility] Work Phone: Start: 05-11-2022 Patient encounter procedure Nicholas Veraer Work Phone: [facility] Work Phone: Start: 05-01-2022 Patient encounter procedure Nicholas Veraer Work Phone: [facility] [place] Work Phone: Start: 04-29-2022 End: 04-29-2022 Patient encounter procedure [facility], Specimen Procedures Date Procedure Procedure Detail Performing Clinician Start: 04-30-2023 End: 04-30-2023 EKG impression Sj Patrick Tonsillectomy Shaw kathleen Work Phone: Total replacement of hip Ronnie negra French Work Phone: Plan of Treatment Date Care Activity Detail Author Start: 11-25-2023 FUV, Provider: Jose Bey, Status: Pen, Time: 10:30 AM FUV, Provider: Jose Bey, Status: Pen, Time: 10:30 AM GD-Sukzsvkucp-QqqpzpRima [facility] Work Phone: Start: 09-08-2023 End: 09-08-2024 CBC panel - Blood by Automated count CBC Lab Routine Primary hypertension Arthritis Encounter for lipid screening for cardiovascular disease Expected: 09/08/2023 (Approximate), Expires: 09/08/2024 [facility] Work Phone: Comment on above: Expected: 09/08/2023 (Approximate), Expires: 09/08/2024 Start: 09-08-2023 End: 09-08-2024 Comprehensive metabolic 2000 panel - Serum or Plasma Comprehensive Metabolic Panel Lab Routine Primary hypertension Arthritis Encounter for lipid screening for cardiovascular disease Expected: 09/08/2023 (Approximate), Expires: 09/08/2024 [facility] Work Phone: Comment on above: Expected: 09/08/2023 (Approximate), Expires: 09/08/2024 Start: 09-08-2023 End: 09-08-2024 Lipid 1996 panel - Serum or Plasma Lipid Panel Lab Routine Primary hypertension Arthritis Encounter for lipid screening for cardiovascular disease Expected: 09/08/2023 (Approximate), Expires: 09/08/2024 [facility] Work Phone: Comment on above: Expected: 09/08/2023 (Approximate), Expires: 09/08/2024 Start: 09-08-2023 End: 09-08-2024 TSH with reflex to Free T4 if abnormal TSH with reflex to Free T4 if abnormal Lab Routine Primary hypertension Arthritis Encounter for lipid screening for cardiovascular disease Expected: 09/08/2023 (Approximate), Expires: 09/08/2024 [facility] Work Phone: Comment on above: Expected: 09/08/2023 (Approximate), Expires: 09/08/2024 Start: 07-02-2023 Influenza vaccination Influenza Vacc ine (#1) [facility] Start: 05-20-2023 ECHO, Provider: ROBERTO LEONARDI ECHO 1,SMCECHO1, Status: Pen, Time: 9:00 AM ECHO, Provider: ROBERTO HHVI ECHO 1,SMCECHO1, Status: Pen, Time: 9:00 AM MR-Mkhalulemd-Wplngo d [address] [employer] Work Phone: Start: 05-20-2023 STRESS NUC, Provider : ROBERTO LEONARDI STRESS 2,SMCSTRESS2, Status: Pen, Time: 8:00 AM STRESS NUC, Provider: ROBERTO LEONARDI STRESS 2,SMCSTRESS2, Status: Pen, Time: 8:00 AM MR-Viecwjkupr-Wbgelu d [address] [employer] Work Phone: Start: 06-03-2022 PTFUADULT4, Provider : Dalila Avery, Status: Pen, Time: 9:15 AM PTFUADULT4, Provider: Dalila Avery, Status: Pen, Time: 9:15 AM [facility] Work Phone: Start: 06-01-2022 PTRECHADUL, Provider : June Chavarria, Status: Pen, Time: 9:30 AM PTRECHADUL, Provider: June Chavarria, Status: Pen, Time: 9:30 AM [facility] Work Phone: Start: 05-29-2022 PTFUADULT4, Provider : Dalila Avery, Status: Pen, Time: 10:00 AM PTFUADULT4, Provider: Dalila Avery, Status: Pen, Time: 10:00 AM [facility] Work Phone: Start: 05-27-2022 PTFUADULT4, Provider : Dalila Avery, Status: Pen, Time: 10:00 AM PTFUADULT4, Provider: Dalila Avery, Status: Pen, Time: 10:00 AM [facility] Work Phone: Start: 05-25-2022 PTFUADULT4, Provider : Dalila Avery, Status: Pen, Time: 9:15 AM PTFUADULT4, Provider: Dalila Avery, Status: Pen, Time: 9:15 AM [facility] Work Phone: Start: 05-22-2022 PTFUADULT4, Provider : Dalila Avery, Status: Pen, Time: 9:15 AM PTFUADULT4, Provider: Dalila Avery, Status: Pen, Time: 9:15 AM [facility] Work Phone: Start: 05-20-2022 PTFUADULT4, Provider : Dalila Avery, Status: Pen, Time: 10:00 AM PTFUADULT4, Provider: Dalila Avery, Status: Pen, Time: 10:00 AM [facility] Work Phone: Start: 05-18-2022 PTFUADULT4, Provider : Dalila Avery, Status: Pen, Time: 10:00 AM PTFUADULT4, Provider: Dalila Avery, Status: Pen, Time: 10:00 AM [facility] Work Phone: Start: 05-15-2022 PTFUADULT4, Provider : Dalila Avery, Status: Pen, Time: 10:00 AM PTFUADULT4, Provider: Dalila Avery, Status: Pen, Time: 10:00 AM [facility] Work Phone: Start: 05-13-2022 PTFUADULT4, Provider : Dalila Avery, Status: Pen, Time: 9:15 AM PTFUADULT4, Provider: Dalila Avery, Status: Pen, Time: 9:15 AM [facility] Work Phone: Start: 05-11-2022 PTFUADULT4, Provider : Dalila Avery, Status: Pen, Time: 3:30 PM PTFUADULT4, Provider: Dalila Avery, Status: Pen, Time: 3:30 PM [facility] Work Phone: Start: 05-08-2022 PTFUADULT4, Provider : Dalila Avery, Status: Pen, Time: 2:00 PM PTFUADULT4, Provider: Dalila Avery, Status: Pen, Time: 2:00 PM [facility] Work Phone: Start: 10-02-2021 COVID-19 Vaccine (4 - Moderna series) COVID-19 Vaccine (4 - Moderna series) [facility] Start: 2012 Pneumococcal Vaccine : 65+ Years (1 - PCV) Pneumococcal Vaccine: 65+ Years (1 - PCV) [facility] Start: 1997 Zoster Vaccines (1 o f 2) Zoster Vaccines (1 of 2) [facility] Start: 1969 DTaP/Tdap/Td Vaccine s (1 - Tdap) DTaP/Tdap/Td Vaccines (1 - Tdap) [facility] Start: 1965 Hepatitis C screening Hepatitis C [facility] Start: 1947 Lipid panel Lipid Panel [facility] Start: 1947 Yearly Adult Physical Yearly Adult P hysical [facility] Immunizations Immunization Date Immunization Notes Care Provider Donny saxena 07-24-2020 influenza virus vaccine, unspecified formulation Papito Stephens PA-C Work Phone: [facility] Work Phone: Payers Date Payer Category Payer Medicare MEDICARE MEDICAR E PART A AND B [id number] 2012-Present [address] [place] [address] [id number] 2012 Medicare [id number] 2000 Unknown 2000 Unknown [id number] 1947 Unknown [id number] 1947 Unknown [id number] 9 1947 Unknown [id number] 9 1947 Unknown [id number] 9 1947 Unknown [id number] 9 1947 Unknown [id number] 9 1947 Unknown [id number] 9 1947 Unknown [id number] 9 1947 Unknown [id number] 4 1947 Unknown [id number] 5 Self-pay SELF PAY INSURANCE [id number] Social History Date Type Detail Facility Start: 07-13-2019 Tobacco smoking stat [facility] Unknown if ever smoked [facility] Work Phone: Start: 07-13-2019 Non-smoker;Cigarettes [facility] Work Phone: Start: 1945 Sex Assigned At Female [facility] Work Phone: Start: 09-08-2023 Current smoker Current smoker [facility] Work Phone: Comment on above: 1/ ppd; Start: 09-08-2023 Tobacco smoking stat us [facility] Smokes tobacco daily [facility] Work Phone: History of tobacco use Cigarette Smoker [facility] Work Phone: Start: 09-08-2023 Tobacco use and exposure Smokeless tobacco non-user [facility] Work Phone: Start: 09-08-2023 Alcohol intake Current drinke r of alcohol (finding) [facility] Work Phone: Start: 09-08-2023 Tobacco use panel [facility] Work Phone: Start: 1945 Sex Assigned At Not on file [facility] Work Phone: Start: 08-29-2023 End: 09-08-2023 Exposure to SARS-CoV-2 (event) Not sure [facility] Medical Equipment Procedure Code Equipment Code Equipment Origin al Text Equipment Identifier Dates 127 NECK ANGLED HIP STEM FDA Start: 07-24-2019 CLUSTERHOLE ACETABULAR SHELL FDA Start: 07-24-2019 INSERT FOR MDM LINER FDA Star t: 07-24-2019 LINER, CEMENTLESS FDA Start: 07-24-2019 V40 FEMORAL HEAD FDA Start: 07-24-2019 Clinical Notes 04-29-2022 to 09-08-2023 Papito Stephens PA-C - 09/08/2023 2:30 PM EST Note Date & Type Note Facility 09-08-2023 History of Present illness Narrative Subjective Patient ID: Alisson Mcfadden is a 78 y.o. female who presents for [facility] (Patient here to get established as a new patient and transferring from Dr. French./Colonoscopy never done, mammogram done 5 years ago and bone density done 10 years ago per patient.). HPI Patient presents to [facility] care. Patient has of hypertension and arthritis currently managed with amlodipine, lisinopril, and metoprolol. Patient states that labs are recent/current and are normal. Patient has not had a colonoscopy and is not interested in this. Patient has no acute complaints. Review of Systems Constitutional: See HPI Eye: No recent visual problem. Respiratory: No shortness of breath, No cough. Cardiovascular: No chest pain. Gastrointestinal: No abdominal pain, No nausea, No vomiting. Genitourinary: No dysuria, No hematuria. Musculoskeletal: No decreased range of motion. Integumentary: No rash. Neurologic: Alert and oriented X4, No numbness, No tingling. All other systems are negative Objective BP 137/58 Pulse 62 Temp 37.2 C (98.9 F) (Temporal) Ht 1.6 m (5' 3) Wt 71.2 kg (157 lb) SpO2 93% BMI 27.81 kg/m Physical Exam General: Alert and oriented, No acute distress. Eye: Pupils are equal, round and reactive to light, Extraocular movements are intact, Normal conjunctiva. HENT: Normocephalic, Normal hearing, Oral mucosa is moist, No pharyngeal erythema, No sinus tenderness. Neck: Supple, Non-tender, No lymphadenopathy. Respiratory: Lungs are clear to auscultation, Respirations are non-labored, Breath sounds are equal Cardiovascular: Normal rate, Regular rhythm. Gastrointestinal: Non-distended. Musculoskeletal: Normal range of motion, Normal strength, No tenderness, No swelling, No deformity, Normal gait. Integumentary: Warm, Dry, Intact, No pallor, No rash. Neurologic: Alert, Oriented, Normal sensory, Normal motor function, No focal deficits, Cranial Nerves II-XII are grossly intact Psychiatric: Cooperative, Appropriate mood & affect. Assessment/Plan Hypertension: Continue lisinopril, amlodipine, and metoprolol Arthritis: Continue Mobic Patient will be going to [place] soon and will obtain labs upon her return. Problem List Items Addressed This Visit None Visit Diagnoses Primary hypertension - Primary Relevant Orders Lipid Panel TSH with reflex to Free T4 if abnormal CBC Comprehensive Metabolic Panel Arthritis Relevant Orders Lipid Panel TSH with reflex to Free T4 if abnormal CBC Comprehensive Metabolic Panel Encounter for lipid screening for cardiovascular disease Relevant Orders Lipid Panel TSH with reflex to Free T4 if abnormal CBC Comprehensive Metabolic Panel Final diagnoses: [I10] Primary hypertension [M19.90] Arthritis [Z13.220, Z13.6] Encounter for lipid screening for cardiovascular disease documented in this encounter [facility] Work Phone: 04-29-2022 Reason for visit Narrative Initial Evaluation, Post-Op s/p L posterior CHARLY 04/29/22 . unilateral primary OA, left hip; s/p L CHARLY 04/29/22.Referred by: Yaron Wallace PA-C [facility] Work Phone: Evaluation note No assessment inform ation available [facility] Work Phone: Evaluation note Diagnosis Primary hypertension- Primary Unspecified essential hypertension Arthritis Unspecified arthropathy, site unspecified Encounter for lipid screening for cardiovascular disease documented in this encounter [facility] Work Phone: History of Present illness Narrative* Patient is a 77 year female who presents with signs/symptoms consistent with L hip OA s/p L CHARLY: increased pain, decreased hip AROM (not assessed post-operatively), decreased hip/LE strength (not assessed post-operatively, decreased ability as assessed by the LEFS, impaired gait. Patient would benefit from skilled PT to improve hip AROM (while maintaining hip precautions), improve hip/LE strength (while maintaining hip precautions) for return to [place]: able to amb safely without AD, complete cooking/cleaning/bathing independently without L hip pain. Rehab potential is good because patient is motivated to participate in PT and has been compliant with post-op restrictions thus far. At initial e valuation, patient was instructed in ankle pumps, quad sets, glute sets, SAQ. Trialed FWW, discussed benefits of FWW at proper height vs rollator that is too high for ambulating with a more normalized gait pattern. Discussed using plastic bag to help don/doff jeanette hose easier (with 's help). At end of initial evaluation, patient reported pain no worse than pre-evaluation. * Called [facility] and left requesting script for FWW, clarifying hip precautions, requesting second pair of jeanette hose and clarifying if pt should wear overnight. * The physical therapist of record is the therapist who assumes primary responsibility for patient management and as such is held accountable for the coordination, continuation and progression of the POC. * This patient s care and PT of record will be transferred from Dede James PT to June Chavarria PT effective as of 05/01/22. * Clinical Presentation: Stable and/or uncomplicated characteristics. * Level of Complexity: low * Problem List: activity limitations, ADLs/IADLs/self care skills, balance, decreased functional level, decreased knowledge of HEP, fall risk, flexibility, gait/locomotion, pain, participation restrictions, posture, range of motion/joint mobility, strength and transfers. [facility] Work Phone: History of Present illness Narrative* Fatigues quickly with PRE's this date. * Cues with hip ext d/t visible flexion of trunk, improved after cues given. * Continues to ambulate with FWW. [facility] Work Phone: History of Present illness Narrative* Arrived to PT using standard cane instead of walker. * Gait is mildly antalgic with decreased verna. * Patient was challenged by progression to SLR this date. [facility] Work Phone: Hissyhe of Present illness Narrative* Examined patients incision and the area looks as though it was stapled offset and is pulling away. * Instructed patient to use butterfly band aid and to phone MD. * Improved gait observed with no use of AD in clinic. [facility] Work Phone: History of Present illness Narrative* Improved gait that is still mildly antalgic with no AD. * Added seated HS curl this date resisted with orange band. * Mild pain with SLR in anterior hip. [facility] Work Phone: History of Present illness Narrative* Continues to fatigue with standing PRE's in the clinic. * Minimally antalgic gait observed in the clinic. * Will continue to progress to more advanced PRE's next visit. [facility] Work Phone: History of Present illness Narrative* Needs to use B UE assist with SLS on the L. * Mild exacerbation of sx with SLS. * Mildly antalgic gait observed in the clinic. [facility] Work Phone: History of Present illness Narrative* Continues to fatigue quickly with standing PRE's on the airex * Mildly antalgic gait observed in the clinic this date. * Improved eccentric control with with step ups. [facility] Work Phone: History of Present illness Narrative* Pt confirmed via and Full Name. * Pt reassessed this date by supervising PT with improvements noted in Left hip AROM and MMT comparedto eval. Pt has made good progress towards all POC goals. Pt reported good understanding of all eduand updates to HEP made this date and is appropriate to attempt independence with HEP and symptom management at this time. [facility] Work Phone: History of Present illness Narrative* 78-year-old female with a medical history of hypertension here for evaluation of the following complaints: * Chest discomfort * -Patient notes that she has had intermittent chest discomfort for many years. However more recentlyit has become more frequent and more intense. She has been seeing under significant emotional stress at home; and has noted chest discomfort in the center of her chest; the changes with occasional position changes. It occurs for 30 seconds at a time but can come and go for about an hour. She deniesany significant shortness of breath with exertion. Denies any orthopnea/PND. Does not have any lower extremity edema. Does appear to have uncontrolled hypertension at home and here with blood pressure in the 150-160 systolic [id number] [address] Work Phone: History of Present illness Narrative* 78-year-old female with a medical history of hypertension here for evaluation of the following complaints: * Chest discomfort * -Patient notes that she has had intermittent chest discomfort for many years. However more recentlyit has become more frequent and more intense. She has been seeing under significant emotional stress at home; and has noted chest discomfort in the center of her chest; the changes with occasional position changes. It occurs for 30 seconds at a time but can come and go for about an hour. She deniesany significant shortness of breath with exertion. Denies any orthopnea/PND. Does not have any lower extremity edema. Does appear to have uncontrolled hypertension at home and here with blood pressure in the 150-160 [facility] Work Phone: Summary Purpose Family History No Family History Records FoundUnknown Family Member Name Dates Details Family history of cerebrovas cular accident (CVA): Maternal Grandmother, Aunt(V17.1, Z82.3) Status:Active Family history of lung cance r: Mother, Father(V16.1, Z80.1) Status:Active Unknown Family Member Name Dates Details Family history of cerebrovas cular accident (CVA): Maternal Grandmother, Aunt(V17.1, Z82.3) Status:Active Family history of lung cance r: Mother, Father(V16.1, Z80.1) Status:Active Advance Directives No Advanced Directives Records Found Advance Directive Response Recorded Date/ Time Living Will No July 24, 2019 11:00am Power of Food And Beverage Assistant Manager No July 11:00am Chief Complaint and Reason for Visit Chief Complaint L TOTAL HIP ARTHROPL ASTY Chief Complaint Chest discomfortChest discomfort Additional Source Comments INFORMATION SOURCE (unrecogn ized section and content) DATE CREATED AUTHOR 09/09/2019 [facility] DATE CREATED AUTHOR AUTHOR'S ORGANIZ ATION 05/07/2022 [facility] DATE CREATED AUTHOR AUTHOR'S ORGANIZ ATION 05/14/[address] [facility] [place] [facility] DATE CREATED AUTHOR AUTHOR'S ORGANIZ ATION 05/14/2023 [facility] DATE CREATED AUTHOR AUTHOR'S ORGANIZ ATION 05/20/2023 [facility] DATE CREATED AUTHOR AUTHOR'S ORGANIZ ATION 09/10/2023 [facility] DATE CREATED AUTHOR AUTHOR'S ORGANIZ ATION 08/21/2024 [facility] Goals (unrecognized section and content) Goals may be documented in a n alternate section <item> Privacy Markings (unrecogniz ed section and content) Section Author: Delilah Madrid PROHIBITION ON REDISCLOSURE OF CONFIDENTIAL INFORMATION This notice accompanies a disclosure of information concerning a client made to you with the consent of such client. Reason for Visit (unrecogniz ed section and content) Reason Comments Establish Care Patient here to get established as a new patient and transferring from Dr. French.Colonoscopy never done, mammogram done 5 years ago and bone density done 10 years ago per patient. 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 This clinical summary was aggregated from multiple sources. Caution should be exercised in using it in the provision of clinical care. This summary normalizes information from multiple sources, and as a consequence, information in this document may materially change the coding, format and clinical context of patient data. In addition, data may be omitted in some cases. CLINICAL DECISIONS SHOULD BE BASED ON THE PRIMARY CLINICAL RECORDS. [employer] provides no warranty or guarantee of the accuracy or completeness of information in this document.
== END | disposition home or self-care (01) ==
LOC: CT 15:50
PROVIDERS: Referring Provider Specialist; Visit Provider Specialist
DX: M19.011 Primary osteoarthritis, right shoulder (principal)
CPT/HCPCS: 73200